=== PATIENT | female | born 1945 | race Caucasian/White ===

== ENCOUNTER 2017-03-01 14:33 | Emergency (ER) | payer MEDICARE, OTHER ==
[~2017-03-01] VITALS: Ht 167.6 cm; Wt 83.9 kg
[~2017-03-01 14:33] MED LIST: ALBU18HF2 IH; AMLO5TAB4 PO; CLOP75TA2 PO; LOSA1TAB39 PO; MELO-270 PO
--- NOTE | 2017-03-01 14:40 | NUR ---
CEHV082 FROM HOME FOR CONSTIPATION. PATIENT ON OPIODS, SP BACK SX 4 DAYS AGO. ABDOMEN NON TENDERED AND NON DISTENDED. SKIN IS WARM TO TOUCH AND NON DIAPHORETTIC. AFEBRILE. VSS
[2017-03-01 14:55] LABS: BASOPHILS % (AUTO) 0.2 % (0.0-2.0); EOSINOPHILS % (AUTO) 0.2 % (0.0-6.0); HEMATOCRIT 26 % (33-45); HEMOGLOBIN 8.9 g/dL (11.5-14.8); LYMPHOCYTES # (AUTO) 1.1 /CMM (0.8-4.8); LYMPHOCYTES % (AUTO) 13.6 % (20.0-44.0); MEAN CORPUSCULAR HEMOGLOBIN 33 PG (26.0-33.0); MEAN CORPUSCULAR HGB CONC 35 g/dl (31.0-36.0); MEAN CORPUSCULAR VOLUME 95 fL (82-100); MONOCYTES # (AUTO) 0.5 /CMM (0.1-1.30); MONOCYTES % (AUTO) 5.8 % (2.0-12.0); NEUTROPHILS # (AUTO) 6.4 /CMM (1.8-8.9); NEUTROPHILS % (AUTO) 80.2 % (43.0-81.0); PLATELET COUNT (AUTO) 260 /CMM (150-450); RDW COEFFICIENT OF VARIATION 12.1 (11.5-15.0)
[2017-03-01] MEDS ORDERED: IV NS 0.9% 1,000 ML ONE (15:00)
[2017-03-01] MEDS ORDERED: ONDANSETRON HCL/PF 4 MG/2 ML VIAL ONE (15:00)
[2017-03-01] MEDS ORDERED: IV NS 0.9% 1,000 ML BAG IV ONE (15:00)
[2017-03-01] MEDS ORDERED: IV SET PRIMARY PUMP SET 1 EA INFUS.SET MC ONE (15:00)
[2017-03-01] MEDS ORDERED: ONDANSETRON HCL/PF 4 MG/2 ML VIAL IVP ONE (15:00)
[2017-03-01 15:05] LABS: CALCIUM, SERUM 8.5 mg/dL (8.5-10.1); CARBON DIOXIDE 29 mmol/L (21-32); CHLORIDE 101 mmol/L (98-107); CREATININE 0.7 mg/dL (0.6-1.3); GLUCOSE 102 mg/dL (74-106); POTASSIUM 3.6 mmol/L (3.5-5.1); SODIUM SERUM 135 mmol/L (136-145); UREA NITROGEN, BLOOD 7 mg/dL (7-18)
[2017-03-01 15:13] LABS: BILIRUBIN,URINE Negative (NEGATIVE); BLOOD, URINE Negative Ery/uL (NEGATIVE); COLOR,URINE Light yellow (YELLOW); KETONES,URINE 15 (NEGATIVE); LEUKOCYTE ESTERASE ,URINE Negative (NEGATIVE); NITRITE, URINE Negative (NEGATIVE); PH,URINE 6.5 (5.0-8.0); PROTEIN,URINE Negative (NEGATIVE); UGLUCOSE Negative (NEGATIVE); UROBILINOGEN,URINE 0.2 EU/dL (0.2)
[2017-03-01 15:14] LABS: APPEARANCE,URINE Hazy (CLEAR)
[2017-03-01 15:18] LABS: BACTERIA,URINE None seen /HPF (None Seen); RBC,URINE 0-2 /HPF (0-2); SQUAMOUS EPITHELIAL CELL,UR Few /HPF (None Seen); WBC,URINE 0-3 /HPF (0-3)
[2017-03-01] MEDS ORDERED: MAGNESIUM CITRATE 296 ML BOTTLE PO ONE (15:30)
[2017-03-01] MEDS ORDERED: NA PHOS,M-B/NA PHOS,DI-BA 1 EA ENEMA RC ONE ×2 (15:30→15:44)
[2017-03-01] MEDS ORDERED: MAGNESIUM CITRATE 296 ML BOTTLE ONE (15:43)
--- NOTE | 2017-03-01 16:53 | NUR ---
CHECO (DAUGHTER) [phone] CELL. CALL WHEN READY TO GO HOME
[2017-03-01 17:21] VITALS: BP 124/60
== END 2017-03-01 15:07 | disposition home or self-care (01) ==
LOC: ER 14:37
DX: T40.605A Adverse effect of unspecified narcotics, initial encounter (principal); K59.00 Constipation, unspecified; I10 Essential (primary) hypertension
CPT/HCPCS: 36415; 80048; 81001; 85025; 96361; 96374; 99284; A4606; J2405; J7030; 81000-TC; Z7610

== ENCOUNTER 2017-07-18 21:05 | Emergency (ER) | payer MEDICARE ==
[~2017-07-18] VITALS: Ht 167.6 cm; Wt 76.2 kg
--- NOTE | 2017-07-18 21:15 | NUR ---
TO BED 1 A 71 YO FEMALE PT BIB FAMILY, PT C/O FEELING DIZZY, NAUSOUS, AND HIGH BP X 1 DAY. PATIENT IS AAOX4, NAD NOTED. VSS. GOWNED. PLACED ON CARDIAC AND VS MONITORING. COMFORT MEASURES RENDERED. AWAITING FOR ER MD CAMARGO.
--- NOTE | 2017-07-18 21:20 | NUR ---
STARTED A SALINE LOCK ON THE RAC G20, BLOOD DRAWN AND SENT TO LAB.
[2017-07-18 21:31] LABS: BASOPHILS # (AUTO) 0.1 /CMM (0.0-0.2); BASOPHILS % (AUTO) 0.9 % (0.0-2.0); EOSINOPHILS % (AUTO) 0.5 % (0.0-6.0); HEMATOCRIT 39 % (33-45); HEMOGLOBIN 13.3 g/dL (11.5-14.8); LYMPHOCYTES # (AUTO) 2.3 /CMM (0.8-4.8); LYMPHOCYTES % (AUTO) 36.6 % (20.0-44.0); MEAN CORPUSCULAR HEMOGLOBIN 32 PG (26.0-33.0); MEAN CORPUSCULAR HGB CONC 34 g/dl (31.0-36.0); MEAN CORPUSCULAR VOLUME 93 fL (82-100); MONOCYTES # (AUTO) 0.6 /CMM (0.1-1.30); MONOCYTES % (AUTO) 9.2 % (2.0-12.0); NEUTROPHILS # (AUTO) 3.2 /CMM (1.8-8.9); NEUTROPHILS % (AUTO) 52.8 % (43.0-81.0); PLATELET COUNT (AUTO) 318 /CMM (150-450); RDW COEFFICIENT OF VARIATION 13.1 (11.5-15.0); RED BLOOD CELL COUNT(AUTO) 4.24 MIL/uL (4.0-5.2); WHITE BLOOD COUNT (AUTO) 6.2 K/uL (4.3-11.0)
[2017-07-18 21:42] LABS: CALCIUM, SERUM 9.2 mg/dL (8.5-10.1); CARBON DIOXIDE 27 mmol/L (21-32); CHLORIDE 93 mmol/L (98-107); CREATININE 0.8 mg/dL (0.6-1.3); GLUCOSE 91 mg/dL (74-106); POTASSIUM 3.3 mmol/L (3.5-5.1); SODIUM SERUM 129 mmol/L (136-145); UREA NITROGEN, BLOOD 11 mg/dL (7-18)
--- NOTE | 2017-07-18 21:45 | NUR ---
XR AT BEDSIDE.
[2017-07-18 21:46] LABS: PROTHROMBIN TIME 10.4 SECS (9.5-12.7)
[2017-07-18 21:48] LABS: ALANINE AMINOTRANSFERASE 32 U/L (12-78); ALBUMIN 3.8 g/dL (3.4-5.0); ALKALINE PHOSPHATASE 52 U/L (46-116); ASPARTATE AMINOTRANSFERASE 27 U/L (15-37); BILIRUBIN,DIRECT 0.1 mg/dL (0.0-0.2); BILIRUBIN,TOTAL 0.6 mg/dL (0.2-1.0); TOTAL PROTEIN, SERUM 7.3 g/dL (6.4-8.2)
--- NOTE | 2017-07-18 21:49 | NUR ---
DR TAVERAS AT BEDSIDE.
[2017-07-18 21:50] LABS: TROPONIN I < 0.017 ng/mL (0.00-0.056)
--- NOTE | 2017-07-18 22:26 | NUR ---
PATIENT TAKEN TO CT.
--- NOTE | 2017-07-18 22:34 | NUR ---
PATIENT BACK FROM RADIOLOGY.
--- NOTE | 2017-07-18 22:48 | NUR ---
DR CORTEZ AT BEDSIDE.
[2017-07-18] MEDS ORDERED: ONDANSETRON HCL/PF 4 MG/2 ML VIAL ONE (22:56)
[2017-07-18] MEDS ORDERED: MECLIZINE HCL 12.5 MG TABLET ONE (22:56)
[2017-07-18] MEDS ORDERED: ONDANSETRON HCL/PF 4 MG/2 ML VIAL IV ONE (23:00)
[2017-07-18] MEDS ORDERED: MECLIZINE HCL 12.5 MG TABLET PO ONE (23:00)
--- NOTE | 2017-07-18 23:00 | NUR ---
MEDICATED PATIENT ORDERED BY DR CORTEZ.
--- NOTE | 2017-07-18 23:46 | NUR ---
IV removed. Catheter intact and site benign. Pressure and 4x4 applied to site. No bleeding noted. Patient discharged to home in stable condition. Written and verbal after care instructions given. Patient verbalizes understanding of instruction. Patient is ambulatory with steady gait, accompanied by family. Instructed patient not to drive. No further complaints.
[2017-07-18 23:47] VITALS: BP 135/65
== END 2017-07-18 23:48 | disposition home or self-care (01) ==
LOC: ER 21:07
DX: F41.9 Anxiety disorder, unspecified (principal); R42 Dizziness and giddiness; I10 Essential (primary) hypertension; R79.1 Abnormal coagulation profile; I44.7 Left bundle-branch block, unspecified; Z96.659 Presence of unspecified artificial knee joint; Z98.890 Other specified postprocedural states
CPT/HCPCS: 36415; 70450; 71010; 80048; 80076; 84484; 85025; 85730; 93005; 96374; 99285; A4606; J2405; J8597; Z7610

== ENCOUNTER 2019-08-19 15:21 | Emergency (ER) | payer MEDICARE ==
[~2019-08-19] VITALS: Ht 167.6 cm; Wt 77.1 kg
[~2019-08-19 15:21] MED LIST changes: +CLOP75TA15 PO; -CLOP75TA2 PO; +MELO-105 PO; -MELO-270 PO
--- NOTE | 2019-08-19 15:28 | NUR ---
BIB SELF C/O DIZZINESS FOR 1 WEEK, GLF 1 WEEK AGO DENIES HEAD INJURY, PT AWAKE, ALERT, -SOB, NAD NOTED, VSS, PENDING MD CAMARGO
[2019-08-19 16:49] LABS: BASOPHILS % (AUTO) 0.7 % (0.0-2.0); EOSINOPHILS % (AUTO) 0.9 % (0.0-6.0); HEMATOCRIT 39 % (33-45); HEMOGLOBIN 13.1 g/dL (11.5-14.8); LYMPHOCYTES # (AUTO) 1.8 /CMM (0.8-4.8); LYMPHOCYTES % (AUTO) 33.3 % (20.0-44.0); MEAN CORPUSCULAR HGB CONC 34 g/dl (31.0-36.0); MEAN CORPUSCULAR VOLUME 99 fL (82-100); MONOCYTES # (AUTO) 0.5 /CMM (0.1-1.30); MONOCYTES % (AUTO) 8.9 % (2.0-12.0); NEUTROPHILS # (AUTO) 3.1 /CMM (1.8-8.9); NEUTROPHILS % (AUTO) 56.2 % (43.0-81.0); PLATELET COUNT (AUTO) 288 /CMM (150-450); RED BLOOD CELL COUNT(AUTO) 3.94 MIL/uL (4.0-5.2); THYROID STIMULATING HORMONE 1.365 uIU/mL (0.358-3.74); WHITE BLOOD COUNT (AUTO) 5.4 K/uL (4.3-11.0)
[2019-08-19 18:00] VITALS: BP 159/90
[2019-08-19 18:07] LABS: CALCIUM, SERUM 9.3 mg/dL (8.5-10.1); CARBON DIOXIDE 27 mmol/L (21-32); CHLORIDE 103 mmol/L (98-107); CREATININE 0.9 mg/dL (0.6-1.3); GLUCOSE 89 mg/dL (74-106); MAGNESIUM 2.1 mg/dL (1.8-2.4); POTASSIUM 4.4 mmol/L (3.5-5.1); SODIUM SERUM 141 mmol/L (136-145); UREA NITROGEN, BLOOD 18 mg/dL (7-18)
--- NOTE | 2019-08-19 18:14 | NUR ---
Patient discharged to home in stable condition. Written and verbal after care instructions given. Patient verbalizes understanding of instruction. IV removed. Catheter intact and site benign. Pressure and 4x4 applied to site. No bleeding noted.
== END 2019-08-19 18:16 | disposition home or self-care (01) ==
LOC: ER 15:22
DX: R42 Dizziness and giddiness (principal); I10 Essential (primary) hypertension; J45.909 Unspecified asthma, uncomplicated; Z96.659 Presence of unspecified artificial knee joint; Z98.890 Other specified postprocedural states; Z60.2 Problems related to living alone; Z79.899 Other long term (current) drug therapy
CPT/HCPCS: 36415; 70450-TC; 80048-TC; 83735-TC; 84439-TC; 84443-TC; 85025-TC

== ENCOUNTER 2020-01-03 11:32 | Inpatient (IN) | payer MEDICARE ==
[~2020-01-03] VITALS: Ht 167.6 cm; Wt 83.9 kg
--- NOTE | 2020-01-03 11:35 | NUR ---
PT BIBSELF C/O DIZZNESS STARTED 10AM THIS AM, PT IS AAOX4, NOT IN RESPIRATORY DISTRESS, HOOKED TO REGISTERED NURSE STEP DOWN, KEPT RESTED AND COMFORTABLE, WILL CONTINUE TO MONITOR.
--- NOTE | 2020-01-03 12:10 | NUR ---
SEEN AND EXAMINED BY .
--- NOTE | 2020-01-03 12:20 | NUR ---
URINE SPECIMEN COLLECTED AND SENT TO LAB.
[2020-01-03] MEDS ORDERED: ONDANSETRON HCL/PF 4 MG/2 ML VIAL ONE (12:22)
[2020-01-03] MEDS ORDERED: MECLIZINE HCL 25 MG TABLET ONE (12:22)
[2020-01-03] MEDS ORDERED: IV NS 0.9% 500 ML BAG IV ONE (12:30)
[2020-01-03] MEDS ORDERED: ONDANSETRON HCL/PF 4 MG/2 ML VIAL IVP ONE (12:30)
[2020-01-03] MEDS ORDERED: MECLIZINE HCL 12.5 MG TABLET PO ONE (12:30)
--- NOTE | 2020-01-03 12:35 | NUR ---
IV LINE ESTABLISHED, BLOODRAWN AND SENT TO LAB.
[2020-01-03 12:37] LABS: BILIRUBIN,URINE Negative (NEGATIVE); BLOOD, URINE Negative Ery/uL (NEGATIVE); COLOR,URINE Yellow (YELLOW); KETONES,URINE Negative (NEGATIVE); LEUKOCYTE ESTERASE ,URINE Trace (NEGATIVE); NITRITE, URINE Negative (NEGATIVE); PROTEIN,URINE Negative (NEGATIVE); UGLUCOSE Negative (NEGATIVE); UROBILINOGEN,URINE 0.2 EU/dL (0.2)
[2020-01-03 12:40] LABS: APPEARANCE,URINE SLIGHTLY HAZY (CLEAR)
[2020-01-03 12:41] LABS: BACTERIA,URINE None seen /HPF (None Seen); RBC,URINE 0-2 /HPF (0-2); SQUAMOUS EPITHELIAL CELL,UR Few /HPF (None Seen)
[2020-01-03 12:44] LABS: BASOPHILS # (AUTO) 0.1 /CMM (0.0-0.2); BASOPHILS % (AUTO) 1.3 % (0.0-2.0); HEMATOCRIT 41 % (33-45); HEMOGLOBIN 13.8 g/dL (11.5-14.8); LYMPHOCYTES # (AUTO) 1.4 /CMM (0.8-4.8); LYMPHOCYTES % (AUTO) 29.8 % (20.0-44.0); MEAN CORPUSCULAR HGB CONC 33 g/dl (31.0-36.0); MEAN CORPUSCULAR VOLUME 99 fL (82-100); MONOCYTES # (AUTO) 0.4 /CMM (0.1-1.30); MONOCYTES % (AUTO) 8.4 % (2.0-12.0); NEUTROPHILS # (AUTO) 2.8 /CMM (1.8-8.9); NEUTROPHILS % (AUTO) 59.5 % (43.0-81.0); PLATELET COUNT (AUTO) 300 /CMM (150-450); RED BLOOD CELL COUNT(AUTO) 4.18 MIL/uL (4.0-5.2); WHITE BLOOD COUNT (AUTO) 4.8 K/uL (4.3-11.0)
[2020-01-03 12:52] LABS: CALCIUM, SERUM 9.2 mg/dL (8.5-10.1); CARBON DIOXIDE 33 mmol/L (21-32); CHLORIDE 101 mmol/L (98-107); CREATININE 0.9 mg/dL (0.6-1.3); GLUCOSE 94 mg/dL (74-106); POTASSIUM 4.8 mmol/L (3.5-5.1); SODIUM SERUM 136 mmol/L (136-145); UREA NITROGEN, BLOOD 15 mg/dL (7-18)
[2020-01-03 12:57] LABS: ALANINE AMINOTRANSFERASE 38 U/L (12-78); ALBUMIN 3.9 g/dL (3.4-5.0); ALKALINE PHOSPHATASE 58 U/L (46-116); ASPARTATE AMINOTRANSFERASE 25 U/L (15-37); BILIRUBIN,DIRECT 0.1 mg/dL (0.0-0.2); BILIRUBIN,TOTAL 0.4 mg/dL (0.2-1.0); TOTAL PROTEIN, SERUM 7.6 g/dL (6.4-8.2)
[2020-01-03] MEDS ORDERED: IV NS 0.9% 500 ML IV ONE (13:10)
[2020-01-03] MEDS ORDERED: CT SWABBABLE VALVE TRANS SET 1 EA INFUS.SET MC ONE (13:10)
[2020-01-03] MEDS ORDERED: IOHEXOL-350 100 ML VIAL IV ONE (13:10)
[2020-01-03] MEDS ORDERED: diphenhydrAMINE HCL 50 MG/ML VIAL ONE (13:17)
--- NOTE | 2020-01-03 13:20 | NUR ---
PT IS WHEELED TO CT SCAN VIA [facility].
[2020-01-03] MEDS ORDERED: diphenhydrAMINE HCL 50 MG/ML VIAL IV ONE (13:30)
--- NOTE | 2020-01-03 13:35 | NUR ---
GAVE MOVESHEET TO ADMITTING
--- NOTE | 2020-01-03 14:04 | NUR ---
AWAITING CALL FROM [facility]
--- NOTE | 2020-01-03 14:23 | NUR ---
RECEIVED AUTH TO ADMIT PER ADMITTING
--- NOTE | 2020-01-03 14:30 | NUR ---
CALLED [facility], PAGED DANII HOWARD FOR ADMISSION
--- NOTE | 2020-01-03 15:04 | NUR ---
[facility] IS [facility].
--- NOTE | 2020-01-03 15:35 | NUR ---
[id number] tele, dx tia dizziness, [facility]
--- NOTE | 2020-01-03 16:25 | NUR ---
report given to Tim HERBERT for ilia.
[2020-01-03 16:45] VITALS: BP 160/72
--- NOTE | 2020-01-03 16:45 | NUR ---
tele diesel instructor: admission admitted this 74 year old female pt from [facility] with dx: tia. awake, a/ox4, able to ambulate with hand held assist. oriented to room and surroundings. dr. quezada at bedside. all orders carried out and acknowledged. pt for p.t. and o.t. eval. tele sr with bbb. afebrile, vss. no apparent distress noted. will continue to monitor.
--- NOTE | 2020-01-03 17:43 | NUR ---
tele sewer line repairer: notes mri checklist completed and signed by pt. dinner served. hob elevated. instructed to call for assistance. will continue to monitor.
[2020-01-03] MEDS: APIXABAN 5 MG TABLET PO SCH (17:53)
[2020-01-03 18:00] VITALS: BP 157/74
[2020-01-03] MEDS: IV NS 0.9% 1,000 ML IV PRN (18:21)
[2020-01-03] MEDS ORDERED: ACETAMINOPHEN 325 MG TABLET PO PRN (18:30)
[2020-01-03] MEDS ORDERED: ONDANSETRON HCL/PF 4 MG/2 ML VIAL IVP PRN (18:30)
--- NOTE | 2020-01-03 18:30 | NUR ---
tele contact manager: notes resting comfortable in bed. iv fluids infusing well. needs attended. instructed to call for assistance. will continue to monitor.
--- NOTE | 2020-01-03 19:00 | NUR ---
tele slot operations director: notes report given to sophia (naveen) for continuity of care.
[2020-01-03 20:00] VITALS: BP 144/80
--- NOTE | 2020-01-03 20:00 | NUR ---
RN NOTES PATIENT ALERT AND ORIENTED X4, ROOM AIR, NO COMPLAIN OF PAIN, FACE SYMMETRICAL, NO DIFFICULTY SWALLOWING, ADMITTED FOR TIA. NEURO CHECK Q4HRS, NEGATIVE ASSESSMENT, ABLE TO AMBULATE WITHOUT DIFFICULTY, CONTINUE MONITOR, CALL LIGHT WITHIN REACH.
[2020-01-03] MEDS ORDERED: ATORVASTATIN 40 MG TABLET PO SCH (22:00)
[2020-01-04] VITALS: BP 125/49
[2020-01-04] MEDS: IV NS 0.9% 1,000 ML IV PRN (03:48)
[2020-01-04 04:00] VITALS: BP 135/62
--- NOTE | 2020-01-04 06:25 | NUR ---
RN NOTES ALERT AND ORIENTED X4, ROOM AIR, NO COMPLAIN OF PAIN, NEURO CHECK Q4HRS WITH NEGATIVE ASSESSMENT, ABLE TO AMBULATE INDEPENDENTLY, PERFORMS SELF CARE, MRI OF BRAIN WITH CONTRAST, CHECKLIST DONE.
[2020-01-04] MEDS ORDERED: PANTOPRAZOLE 40 MG TABLET.DR PO SCH (07:30)
[2020-01-04 07:42] LABS: CHOLESTEROL 189 mg/dL (<200); HDL CHOLESTEROL 92 mg/dL (40-60); LDL 94 mg/dL (0-99); TRIGLYCERIDES 48 mg/dL (30-150)
--- NOTE | 2020-01-04 07:44 | NUR ---
MS/RN Opening note Patient received from manufacturing shift supervisor. A/O X4, vital signs stable, denies any pain or discomfort at this time. IV fluids infusing at 100ml/hr via left fore arm 18g. For MRI today, consent form signed, check list completed. Safety measures in place, call light within reach, will continue to monitor and ensure safety.
[2020-01-04 08:00] VITALS: BP 159/70
[2020-01-04 08:14] VITALS: BP 159/70
[2020-01-04] MEDS: APIXABAN 5 MG TABLET PO SCH (08:17)
[2020-01-04] MEDS ORDERED: LOSARTAN POTASSIUM 50 MG TABLET PO SCH (09:00)
[2020-01-04] MEDS ORDERED: HYDROCHLOROTHIAZIDE 25 MG TABLET PO SCH (09:00)
[2020-01-04] MEDS ORDERED: AMLODIPINE BESYLATE 5 MG TABLET PO SCH (09:00)
[2020-01-04] MEDS ORDERED: Medication Not On Formulary EA (Losartan/Hydrochlorothiazide (Losartan-Hctz 100-25 Mg Ta PO SCH (09:00)
[2020-01-04] MEDS ORDERED: CLOPIDOGREL BISULFATE 75 MG TABLET PO SCH (09:00)
--- NOTE | 2020-01-04 09:00 | NUR ---
MS/RN Medications Morning medications administered as ordered.
--- NOTE | 2020-01-04 11:00 | NUR ---
MS/RN S/B Physical therapist Seen by PT - no needs at this time, independent with mobility.
--- NOTE | 2020-01-04 13:13 | NUR ---
MS/RN MRI Patient back in room following MRI brain, resulted as negative.
--- NOTE | 2020-01-04 14:00 | NUR ---
MS/RN S/B Dr Medina Seen by Dr Medina - patient to be discharged to home today with prescription for eliquis and lipitor. Instructed to follow up with MD in office. Made aware of signs and symptoms to be on look out for and when to return to the nearest emergency room. Patient stated understanding, provided with education printout on TIA's from exit care for further reference. Heplock and tele monitor removed, exit care signed. Patient provided with copies of exit care, medical record and also given prescription to be filled at pharmacy. All questions and concerns answered/addressed. Personal belongings returned to patient and signed for on belongings list. Waiting for transport.
[2020-01-04] MEDS ORDERED: ATOR40TA PO (14:05)
[2020-01-04] MEDS ORDERED: CLOP75TA15 PO (14:05)
[2020-01-04] MEDS ORDERED: APIX5TAB PO (14:05)
--- NOTE | 2020-01-04 15:30 | NUR ---
Social service consult requested by MD for TIA. Per MD notes and chart review, pt is a 74-year-old female with history of chronic atrial fibrillation and hypertension who states that she had 3 TIAs yesterday morning. Pt also has a metallic taste in her mouth. Patient was scheduled to have an outpatient MRI done through the office however because of recurrence of the symptoms presented to the emergency department. Work-up in the emergency department had revealed patient to have findings suggestive of some carotid stenosis of significant degree. Patient does have history of atrial fibrillation and takes Xarelto. Patient also has hypertension. CAVITY PUMP OPERATOR consulted with NAN Francis. CAVITY PUMP OPERATOR met the pt bedside. Pt is alert and oriented x 4. Pt's mood congruent. Pt lives alone but rents out a room to [employer] Pt has three adult children. Two daughter and one son. Her daughter Charisma lives close by and visits her daily. Charisma is a table hand and provides meals for the pt. Pt is ambulatory. Pt has a shower chair at home. Pt is independent wit her ADLS and IADLS. Pt surrogate decision maker are her three children. Pt denies SI/HI at this time. Pt has no history of psychiatric diagnosis or hospitalizations. Pt to be discharged back home today. Pt had an MRI and results were negative. Pt did not have a stroke. CAVITY PUMP OPERATOR provided active listening, supportive counseling and validation of feelings. [employer] is available as needed. PhQ-9 was completed and pt scored below a 4, therefore not requiring a psychiatric consult.
--- NOTE | 2020-01-04 16:59 | NUR ---
MS/principal technologist Patient discharged to home in stable condition. Escorted to main lobby via wheelchair with PAYROLL MANAGER. All personal belongings with patient upon discharge, name bands removed prior to discharge.
== END 2020-01-04 16:40 | disposition home or self-care (01) | DRG 68 ==
LOC: ER 11:32 → TELE 15:42
PROVIDERS: ADMIT Legal Medicine; ATTEND Legal Medicine
DX: I65.23 Occlusion and stenosis of bilateral carotid arteries (principal); I48.20 Chronic atrial fibrillation, unspecified; I10 Essential (primary) hypertension; I25.10 Atherosclerotic heart disease of native coronary artery without angina pectoris; E78.5 Hyperlipidemia, unspecified; J45.909 Unspecified asthma, uncomplicated; Z86.73 Personal history of transient ischemic attack (TIA), and cerebral infarction without residual deficits; R40.2412 Glasgow coma scale score 13-15, at arrival to emergency department; R29.700 NIHSS score 0
CPT/HCPCS: 36415; 70496-TC; 70498-TC; 70551-TC; 71045-TC; 80048-TC; 80061-TC; 80076-TC; 81000-TC; 84484-TC; 85025-TC; 85730-TC; 87081-TC; 93307-TC; 97116-TC; 97530-TC; 97535-TC; G0378; J1200; J2405; J7030; J7040; J8597; Q9967

== ENCOUNTER 2020-02-29 12:32 | Emergency (ER) | payer MEDICARE ==
[~2020-02-29] VITALS: Ht 167.6 cm; Wt 83.0 kg
[~2020-02-29 12:32] MED LIST changes: +APIX5TAB PO; +ATOR40TA PO; -MELO-105 PO
--- NOTE | 2020-02-29 13:00 | NUR ---
patient came in to the er c/o possible seizure, advised by PMD to go to er. on room air, breathing evenly and unlabored. connected to the monitor and pulse ox, kept comfortable, will continue to monitor accordingly.
[2020-02-29] MEDS ORDERED: VALPROATE 1,000 MG in IV D5W 100 ML IV STA (13:19)
[2020-02-29] MEDS ORDERED: LORAZEPAM INJ 2 MG/ML VIAL ONE (13:28)
[2020-02-29] MEDS ORDERED: LORAZEPAM INJ 2 MG/ML VIAL IV ONE (13:30)
[2020-02-29 14:43] VITALS: BP 145/81
--- NOTE | 2020-02-29 14:44 | NUR ---
Patient discharged to home in stable condition. Written and verbal after care instructions given. Patient verbalizes understanding of instruction.IV removed. Catheter intact and site benign. Pressure and 4x4 applied to site. No bleeding noted.
== END 2020-02-29 14:43 | disposition home or self-care (01) ==
LOC: ER 12:32
DX: G40.909 Epilepsy, unspecified, not intractable, without status epilepticus (principal); E78.5 Hyperlipidemia, unspecified; I10 Essential (primary) hypertension; I48.91 Unspecified atrial fibrillation; J45.909 Unspecified asthma, uncomplicated; Z96.659 Presence of unspecified artificial knee joint; Z98.890 Other specified postprocedural states; Z60.2 Problems related to living alone; Z79.899 Other long term (current) drug therapy
CPT/HCPCS: 96365; 96375; 99284; J2060; J3490; J7060

== ENCOUNTER 2020-05-28 15:58 | Emergency (ER) | payer MEDICARE ==
[~2020-05-28] VITALS: Ht 167.6 cm; Wt 80.3 kg
--- NOTE | 2020-05-28 16:05 | NUR ---
ER BED 3 PT CAME IN STATES THAT SHE FELL. CHIEF COMPLAINT OF LOWER BACK PAIN 04/02 AND THAT SHE HIT HER HEAD WHEN SHE FELL. VS CHECKED. AWAITING TO BE SEEN BY .
[2020-05-28 17:13] LABS: BASOPHILS % (AUTO) 0.8 % (0.0-2.0); EOSINOPHILS % (AUTO) 0.5 % (0.0-6.0); HEMATOCRIT 38 % (33-45); HEMOGLOBIN 12.7 g/dL (11.5-14.8); LYMPHOCYTES # (AUTO) 1.4 /CMM (0.8-4.8); LYMPHOCYTES % (AUTO) 24.6 % (20.0-44.0); MEAN CORPUSCULAR HGB CONC 34 g/dl (31.0-36.0); MEAN CORPUSCULAR VOLUME 102 fL (82-100); MONOCYTES # (AUTO) 0.4 /CMM (0.1-1.30); NEUTROPHILS # (AUTO) 3.8 /CMM (1.8-8.9); NEUTROPHILS % (AUTO) 67.1 % (43.0-81.0); PLATELET COUNT (AUTO) 229 /CMM (150-450); RED BLOOD CELL COUNT(AUTO) 3.71 MIL/uL (4.0-5.2); WHITE BLOOD COUNT (AUTO) 5.6 K/uL (4.3-11.0)
[2020-05-28 17:23] LABS: CALCIUM, SERUM 9.1 mg/dL (8.5-10.1); CREATININE 1.2 mg/dL (0.6-1.3); POTASSIUM 4.6 mmol/L (3.5-5.1)
--- NOTE | 2020-05-28 17:46 | NUR ---
D/C HOME Patient discharged to home in stable condition. Written and verbal after care instructions given. Patient verbalizes understanding of instruction.
[2020-05-28 17:48] VITALS: BP 148/82
== END 2020-05-28 17:48 | disposition home or self-care (01) ==
LOC: ER 16:06
DX: S09.8XXA Other specified injuries of head, initial encounter (principal); M17.10 Unilateral primary osteoarthritis, unspecified knee; M54.5 Low back pain; I10 Essential (primary) hypertension; I48.91 Unspecified atrial fibrillation; J45.909 Unspecified asthma, uncomplicated; Z98.890 Other specified postprocedural states; Z60.2 Problems related to living alone; Z79.899 Other long term (current) drug therapy; W18.39XA Other fall on same level, initial encounter; Y93.89 Activity, other specified; Y92.89 Other specified places as the place of occurrence of the external cause; Y99.8 Other external cause status
CPT/HCPCS: 36415; 70450-TC; 72131-TC; 80048-TC; 85025-TC

== ENCOUNTER 2020-06-10 14:47 | Emergency (ER) | payer MEDICARE ==
[~2020-06-10] VITALS: Ht 167.6 cm; Wt 78.5 kg
[2020-06-10] MEDS ORDERED: IV NS 0.9% 500 ML BAG IV ONE (16:00)
--- NOTE | 2020-06-10 16:07 | NUR ---
BIBS FROM HOME TO ER BED 5. AAOX4. NOT IN RESP DISTRESS, BREATHING EVEN AND UNLABORED. AMBULATORY. CAME IN FOR FEELING SICK FOR THE PAST 3 DAYS. PT REPORTS THAT SHE HAD CHILLS, FEVER. NAUSE AND DIARRHEA. PT ALSO REPORTS THAT SHE IF FEELING FATIGUED. AWAITING MD FOR EVAL. ORDERS RECEIVED.
[2020-06-10 16:31] LABS: BASOPHILS % (AUTO) 0.2 % (0.0-2.0); HEMATOCRIT 40 % (33-45); HEMOGLOBIN 13.2 g/dL (11.5-14.8); LYMPHOCYTES # (AUTO) 0.8 /CMM (0.8-4.8); LYMPHOCYTES % (AUTO) 7.8 % (20.0-44.0); MEAN CORPUSCULAR HGB CONC 33 g/dl (31.0-36.0); MEAN CORPUSCULAR VOLUME 101 fL (82-100); MONOCYTES # (AUTO) 0.6 /CMM (0.1-1.30); MONOCYTES % (AUTO) 5.7 % (2.0-12.0); NEUTROPHILS # (AUTO) 9.2 /CMM (1.8-8.9); NEUTROPHILS % (AUTO) 86.3 % (43.0-81.0); PLATELET COUNT (AUTO) 262 /CMM (150-450); RED BLOOD CELL COUNT(AUTO) 3.94 MIL/uL (4.0-5.2); WHITE BLOOD COUNT (AUTO) 10.6 K/uL (4.3-11.0)
[2020-06-10 16:42] LABS: CARBON DIOXIDE 27 mmol/L (21-32); CHLORIDE 96 mmol/L (98-107); CREATININE 0.9 mg/dL (0.6-1.3); GLUCOSE 84 mg/dL (74-106); POTASSIUM 3.8 mmol/L (3.5-5.1); SODIUM SERUM 131 mmol/L (136-145); UREA NITROGEN, BLOOD 11 mg/dL (7-18)
[2020-06-10 16:48] LABS: ALANINE AMINOTRANSFERASE 47 U/L (12-78); ALBUMIN 3.7 g/dL (3.4-5.0); ALKALINE PHOSPHATASE 77 U/L (46-116); ASPARTATE AMINOTRANSFERASE 29 U/L (15-37); BILIRUBIN,DIRECT 0.2 mg/dL (0.0-0.2); BILIRUBIN,TOTAL 0.5 mg/dL (0.2-1.0); TOTAL PROTEIN, SERUM 7.4 g/dL (6.4-8.2)
[2020-06-10 18:12] LABS: APPEARANCE,URINE CLEAR (CLEAR); BILIRUBIN,URINE NEGATIVE (NEGATIVE); BLOOD, URINE TRACE-INTA Ery/uL (NEGATIVE); COLOR,URINE YELLOW (YELLOW); KETONES,URINE 15 (NEGATIVE); LEUKOCYTE ESTERASE ,URINE NEGATIVE (NEGATIVE); NITRITE, URINE NEGATIVE (NEGATIVE); PROTEIN,URINE NEGATIVE (NEGATIVE); UGLUCOSE NEGATIVE (NEGATIVE); UROBILINOGEN,URINE 0.2 EU/dL (0.2)
[2020-06-10 18:27] LABS: BACTERIA,URINE None seen /HPF (None Seen); SQUAMOUS EPITHELIAL CELL,UR 0-2 /HPF (None Seen); WBC,URINE 0-2 /HPF (0-3)
--- NOTE | 2020-06-10 20:06 | NUR ---
Patient discharged to home in stable condition. Written and verbal after care instructions given. Patient verbalizes understanding of instruction.IV removed. Catheter intact and site benign. Pressure and 4x4 applied to site. No bleeding noted. Pt ambulatory with a steady gait
[2020-06-10 20:14] VITALS: BP 138/67
== END 2020-06-10 20:15 | disposition home or self-care (01) ==
LOC: ER 14:51
DX: B34.9 Viral infection, unspecified (principal); Z20.828 Contact with and (suspected) exposure to other viral communicable diseases; I48.91 Unspecified atrial fibrillation; Z79.01 Long term (current) use of anticoagulants; J45.909 Unspecified asthma, uncomplicated; I10 Essential (primary) hypertension; R11.2 Nausea with vomiting, unspecified; Z79.02 Long term (current) use of antithrombotics/antiplatelets
CPT/HCPCS: 36415; 71045; 80048; 80076; 81001; 83605; 84145; 84484; 85025; 85730; 87040 ×2; 87086; 87426; 93005; 99285; C9803; J7040; 81000-TC

== ENCOUNTER 2020-09-17 11:52 | Emergency (ER) | payer MEDICARE ==
[~2020-09-17] VITALS: Ht 167.6 cm; Wt 74.8 kg
[2020-09-17 12:02] VITALS: BP 138/65
--- NOTE | 2020-09-17 12:12 | NUR ---
SEEN AND EXAMINED BY .
--- NOTE | 2020-09-17 12:40 | NUR ---
YURI SYKES AT BEDSIDE FOR SPLINTING.
--- NOTE | 2020-09-17 12:44 | NUR ---
Patient discharged to home in stable condition. Written and verbal after care instructions given. Patient verbalizes understanding of instruction.
== END 2020-09-17 12:45 | disposition home or self-care (01) ==
LOC: ER 11:55
DX: S63.682A Other sprain of left thumb, initial encounter (principal); I10 Essential (primary) hypertension; I48.91 Unspecified atrial fibrillation; J45.909 Unspecified asthma, uncomplicated; Z98.890 Other specified postprocedural states; Z60.2 Problems related to living alone; Z79.899 Other long term (current) drug therapy; W22.8XXA Striking against or struck by other objects, initial encounter; Y93.89 Activity, other specified; Y92.89 Other specified places as the place of occurrence of the external cause; Y99.8 Other external cause status
CPT/HCPCS: 73130-TC

== ENCOUNTER 2020-10-18 14:35 | Emergency (ER) | payer MEDICARE ==
[~2020-10-18] VITALS: Ht 167.6 cm; Wt 83.5 kg
--- NOTE | 2020-10-18 14:50 | NUR ---
L BACK OF THE KNEE PAIN X 3 WEEKS. DENIES TRAUMA. PATIENT A/OX4, BREATHING EVEN AND UNLABORED, NO SOB NOTED.
[2020-10-18] MEDS ORDERED: ESCI10TA PO (15:40)
[2020-10-18] MEDS ORDERED: LAMO100T17 PO (15:40)
[2020-10-18] MEDS ORDERED: AMLO-212 PO (15:40)
[2020-10-18] MEDS ORDERED: BUME0.5T5 PO (15:40)
[2020-10-18] MEDS ORDERED: METO25TA4 PO (15:40)
[2020-10-18 16:21] VITALS: BP 137/78
--- NOTE | 2020-10-18 16:21 | NUR ---
PATIENT AMBULATORY WITH CANE, NO DISTRESS NOTED, Patient discharged to home in stable condition. Written and verbal after care instructions given. Patient verbalizes understanding of instruction.
== END 2020-10-18 16:21 | disposition home or self-care (01) ==
LOC: ER 14:39
DX: M25.562 Pain in left knee (principal); I48.91 Unspecified atrial fibrillation; I10 Essential (primary) hypertension; J45.909 Unspecified asthma, uncomplicated; Z96.652 Presence of left artificial knee joint; Z98.890 Other specified postprocedural states; Z60.2 Problems related to living alone; Z79.899 Other long term (current) drug therapy
CPT/HCPCS: 73564-TC; 93971-TC

== ENCOUNTER 2021-02-12 18:47 | Emergency (ER) | payer MEDICARE ==
[~2021-02-12] VITALS: Ht 170.2 cm; Wt 68.0 kg
[~2021-02-12 18:47] MED LIST changes: +AMLO-212 PO; -AMLO5TAB4 PO; +BUME0.5T5 PO; -CLOP75TA15 PO; +ESCI10TA PO; +LAMO100T17 PO; -LOSA1TAB39 PO; +METO25TA4 PO
--- NOTE | 2021-02-12 19:29 | NUR ---
BIBS FROM HOME TO ER BED 6. AAOX4. NOT IN RESP DISTRESS. AMBULATORY W/ A CANE. SENT BY DR. CAGE FOR WORSENING RENAL FUNCTION. PT SAID THAT THE TOLD HER SHE IS DEHYDRATED. DENIES ANY PAIN. MD WAS AT THE BEDSIDE FOR EVAL. ORDERS RECEIVED, NOTED AND CARRIED OUT. IV LINE ESTABLISHED ON R HAND 20G. BLOOD DRAWN AND GIVEN TO PHLEB.
[2021-02-12] MEDS ORDERED: IV NS 0.9% 500 ML BAG IV ONE (19:30)
[2021-02-12 19:33] LABS: BASOPHILS % (AUTO) 0.9 % (0.0-2.0); EOSINOPHILS % (AUTO) 0.8 % (0.0-6.0); HEMATOCRIT 37 % (33-45); LYMPHOCYTES # (AUTO) 1.7 /CMM (0.8-4.8); LYMPHOCYTES % (AUTO) 32.5 % (20.0-44.0); MEAN CORPUSCULAR HGB CONC 33 g/dl (31.0-36.0); MEAN CORPUSCULAR VOLUME 100 fL (82-100); MONOCYTES # (AUTO) 0.5 /CMM (0.1-1.30); NEUTROPHILS % (AUTO) 55.8 % (43.0-81.0); PLATELET COUNT (AUTO) 287 /CMM (150-450); RED BLOOD CELL COUNT(AUTO) 3.68 MIL/uL (4.0-5.2); WHITE BLOOD COUNT (AUTO) 5.3 K/uL (4.3-11.0)
[2021-02-12 20:03] LABS: ALANINE AMINOTRANSFERASE 55 U/L (12-78); ALBUMIN 4.1 g/dL (3.4-5.0); ALKALINE PHOSPHATASE 71 U/L (46-116); ASPARTATE AMINOTRANSFERASE 39 U/L (15-37); BILIRUBIN,DIRECT 0.2 mg/dL (0.0-0.2); BILIRUBIN,TOTAL 0.5 mg/dL (0.2-1.0); CARBON DIOXIDE 33 mmol/L (21-32); CHLORIDE 89 mmol/L (98-107); GLUCOSE 86 mg/dL (74-106); POTASSIUM 3.4 mmol/L (3.5-5.1); SODIUM SERUM 129 mmol/L (136-145); TOTAL PROTEIN, SERUM 7.1 g/dL (6.4-8.2); UREA NITROGEN, BLOOD 24 mg/dL (7-18)
[2021-02-12 20:06] LABS: CALCIUM, SERUM 9.5 mg/dL (8.5-10.1)
--- NOTE | 2021-02-12 20:31 | NUR ---
Patient discharged to home in stable condition. Written and verbal after care instructions given. Patient verbalizes understanding of instruction.IV removed. Catheter intact and site benign. Pressure and 4x4 applied to site. No bleeding noted. Pt ambulatory with a steady gait w/ an aide of a cane.
[2021-02-12 20:35] VITALS: BP 134/58
== END 2021-02-12 20:43 | disposition home or self-care (01) ==
LOC: ER 18:47
DX: N17.9 Acute kidney failure, unspecified (principal); I44.7 Left bundle-branch block, unspecified; I10 Essential (primary) hypertension; I48.91 Unspecified atrial fibrillation; J45.909 Unspecified asthma, uncomplicated; Z98.890 Other specified postprocedural states; Z60.2 Problems related to living alone; Z79.899 Other long term (current) drug therapy
CPT/HCPCS: 36415; 71045; 80048; 80076; 84484; 85025; 85730; 93005; 99285; J7040

== ENCOUNTER 2021-03-23 17:38 | Emergency (ER) | payer MEDICARE ==
[~2021-03-23] VITALS: Ht 167.6 cm; Wt 72.6 kg
--- NOTE | 2021-03-23 17:38 | NUR ---
PT BIB SELF C/O L ARM INJURY AND BACK PAIN S/P GLF. "I LOST MY BALANCE" PT IS AAOX4, NOT IN RESPIRATORY DISTRESS, V/S STABLE, KEPT RESTED AND COMFORTABLE. WILL CONTINUE TO MONITOR.
--- NOTE | 2021-03-23 17:57 | NUR ---
AT BEDSIDE FOR EVAL.
[2021-03-23] MEDS ORDERED: DONE5TAB34 PO (18:04)
[2021-03-23] MEDS ORDERED: VALS1TAB6 PO (18:04)
[2021-03-23] MEDS ORDERED: TOPI25TA49 PO (18:04)
[2021-03-23] MEDS ORDERED: TDAP [DIPH/PERTUSSIS/TET] 0.5 ML VIAL IM ONE ×2 (18:09→18:30)
--- NOTE | 2021-03-23 18:11 | NUR ---
HOTEL RECREATIONAL FACILITIES MANAGER AT BEDSIDE FOR XRAY.
--- NOTE | 2021-03-23 20:10 | NUR ---
Patient discharged to home in stable condition. Written and verbal after care instructions given. Patient verbalizes understanding of instruction. Pt ambulatory with a steady gait
[2021-03-23 20:25] VITALS: BP 114/88
== END 2021-03-23 20:10 | disposition home or self-care (01) ==
LOC: ER 18:05
DX: S50.12XA Contusion of left forearm, initial encounter (principal); I10 Essential (primary) hypertension; I48.91 Unspecified atrial fibrillation; J45.909 Unspecified asthma, uncomplicated; Z98.890 Other specified postprocedural states; Z60.2 Problems related to living alone; Z79.899 Other long term (current) drug therapy; W18.39XA Other fall on same level, initial encounter; Y93.89 Activity, other specified; Y92.89 Other specified places as the place of occurrence of the external cause; Y99.8 Other external cause status
CPT/HCPCS: 73090-TC; 90715

== ENCOUNTER 2022-10-04 05:01 | Inpatient (IN) | payer MEDICARE ==
[~2022-10-04] VITALS: Ht 167.6 cm; Wt 72.6 kg
[~2022-10-04 05:01] MED LIST changes: -APIX5TAB PO; -ATOR40TA PO; +DONE5TAB34 PO; -METO25TA4 PO; +VALS1TAB6 PO
--- NOTE | 2022-10-04 05:23 | NUR ---
TO ER BED 10, BIBRA39 R EAR PAIN & LACERATION S/P GLF X 2. +HT, DENIES KO, ON ELIQUIS PER PT SHE GOT OUT OF BALANCE, AAOX3, BREATHING EVEN AND NON LABORED, CONNECTED TO MONITOR.
[2022-10-04] MEDS ORDERED: TDAP [DIPH/PERTUSSIS/TET] 0.5 ML VIAL IM ONE ×2 (05:43→06:00)
--- NOTE | 2022-10-04 06:16 | NUR ---
CAME BACK FROM CT DEPT
--- NOTE | 2022-10-04 07:05 | NUR ---
SALINE LOCK ESTABLISHED, BLOOD DRAWN AND SENT TO LAB
--- NOTE | 2022-10-04 07:05 | NUR ---
URINE COLLECTED AND SENT TO LAB
[2022-10-04 07:18] LABS: BASOPHILS % (AUTO) 0.5 % (0.0-2.0); EOSINOPHILS % (AUTO) 1.3 % (0.0-6.0); HEMATOCRIT 36 % (33-45); HEMOGLOBIN 11.8 g/dL (11.5-14.8); LYMPHOCYTES # (AUTO) 1.4 K/uL (0.8-4.8); LYMPHOCYTES % (AUTO) 23.4 % (20.0-44.0); MEAN CORPUSCULAR HGB CONC 33 g/dl (31.0-36.0); MEAN CORPUSCULAR VOLUME 106 fL (82-100); MONOCYTES # (AUTO) 0.7 K/uL (0.1-1.30); MONOCYTES % (AUTO) 12.3 % (2.0-12.0); NEUTROPHILS # (AUTO) 3.8 K/uL (1.8-8.9); NEUTROPHILS % (AUTO) 62.5 % (43.0-81.0); PLATELET COUNT (AUTO) 247 K/uL (150-450); RED BLOOD CELL COUNT(AUTO) 3.34 MIL/uL (4.0-5.2); WHITE BLOOD COUNT (AUTO) 6.1 K/uL (4.3-11.0)
[2022-10-04 07:54] LABS: CALCIUM, SERUM 9.2 mg/dL (8.5-10.1); CARBON DIOXIDE 28 mmol/L (21-32); CHLORIDE 99 mmol/L (98-107); CREATININE 1.3 mg/dL (0.6-1.3); GLUCOSE 80 mg/dL (74-106); POTASSIUM 4.4 mmol/L (3.5-5.1); SODIUM SERUM 134 mmol/L (136-145); UREA NITROGEN, BLOOD 19 mg/dL (7-18)
[2022-10-04 08:02] LABS: BILIRUBIN,URINE NEGATIVE (NEGATIVE); COLOR,URINE YELLOW (YELLOW); LEUKOCYTE ESTERASE ,URINE NEGATIVE (NEGATIVE); NITRITE, URINE NEGATIVE (NEGATIVE); PROTEIN,URINE NEGATIVE (NEGATIVE); UGLUCOSE NEGATIVE (NEGATIVE); UROBILINOGEN,URINE 0.2 EU/dL (0.2)
[2022-10-04] MEDS ORDERED: LIDOCAINE 1% INJ 50 ML MDV IJ ONE (08:15)
[2022-10-04] MEDS ORDERED: LIDOCAINE /MPF 1% VIAL 5 ML VIAL IJ ONE (08:30)
--- NOTE | 2022-10-04 09:00 | NUR ---
DR MICHEL AT BEDSIDE FOR EAR IRRIGATION
--- NOTE | 2022-10-04 10:13 | NUR ---
DR MICHEL SPEAKING W/ PT'S DTR PONCHO OVER THE PHONE
--- NOTE | 2022-10-04 10:35 | NUR ---
per dr tejeda, pt's dtr will pickup pt later today
[2022-10-04] MEDS ORDERED: METO25TA4 PO (13:51)
--- NOTE | 2022-10-04 14:48 | NUR ---
CALLED [facility] [phone] LEFT ABOUT POSSIBLE LEFT PHONE.
[2022-10-04] MEDS ORDERED: THIAMINE HCL 100 MG TABLET ONE (14:59)
[2022-10-04] MEDS ORDERED: FOLIC ACID 1 MG TABLET ONE (14:59)
[2022-10-04] MEDS ORDERED: THIAMINE HCL 100 MG TABLET PO ONE (15:00)
[2022-10-04] MEDS ORDERED: FOLIC ACID 1 MG TABLET PO ONE (15:00)
--- NOTE | 2022-10-04 15:07 | NUR ---
RAPID COVID SWAB DONE AND SENT TO LAB
--- NOTE | 2022-10-04 15:50 | NUR ---
[facility] CALLED MEDICAL SECRETARY PAGED.
--- NOTE | 2022-10-04 17:19 | NUR ---
BARBARA ISAAC, ABLE TO FIND PT'S PERSONAL CELLPHONE AT [facility].
--- NOTE | 2022-10-04 18:30 | NUR ---
CALLED DR. CAGE [phone] [facility] WILL ADMIT.
--- NOTE | 2022-10-04 19:40 | NUR ---
REPORT GIVEN TO ARA Smith RN FOR WILLARD
--- NOTE | 2022-10-04 19:45 | NUR ---
MS RN ADMITTING NOTES PT ARRIVED AT UNIT VIA GURNEY BY ER STAFF. A/O X4, ORIENTED TO NAME, PLACE, TIME. ABLE TO MAKE NEEDS KNOWN, RESPONDS TO QUESTIONS, COOPERATIVE. STABLE ON RA. NO SOB OR ACUTE DISTRESS NOTED. DENIES CHEST PAIN AT THIS TIME. VS: 139/52 BP, 75 HR, 18 RR, 98 F, 99% O2. WEIGHT: 160 LB. LUNG SOUNDS CLEAR. HEART SOUNDS WNL. SKIN ASSESSMENT PERFORMED, ISSUES NOTED AND DOCUMENTED IN CHART: R EAR WOUND; BRUISES ON R SHOULDER, [place], RFA, R ABDOMEN, R HIP. NO EDEMA NOTED. IV ACCESS RFA #22G, FLUSHING WELL, PATENT AND INTACT. ORIENTED TO UNIT AND HOW TO USE CALL LIGHT. BELONGINGS NOTED AND DOCUMENTED IN CHART. SAFETY MEASURES PUT IN PLACE: BED LOCKED AND IN LOWEST POSITION, SIDE RAILS UP X2, BED ALARM ON, CALL LIGHT AND TRAY TABLE WITHIN REACH. WILL CONTINUE TO MONITOR AND ASSIST.
--- NOTE | 2022-10-04 19:56 | NUR ---
PT TRANSFERRED TO [facility] VIA HOSPITAL PROTOCOL.
[2022-10-04 20:00] VITALS: BP 139/52
[2022-10-04] MEDS ORDERED: ACETAMINOPHEN 325 MG TABLET PO PRN (20:00)
[2022-10-04] MEDS ORDERED: MAGNESIUM HYDROXIDE 30 ML UDC PO PRN (20:00)
[2022-10-04] MEDS ORDERED: MAG HYDROX/AL HYDROX/SIMETH 30 ML UDC PO PRN (20:00)
[2022-10-04] MEDS ORDERED: Z GUARD REMEDY 4 OZ OINT TP PRN (20:00)
[2022-10-04] MEDS ORDERED: ONDANSETRON HCL/PF 4 MG/2 ML VIAL IVP PRN (20:00)
[2022-10-04] MEDS ORDERED: ALBUTEROL FS 2.5 MG/3 ML VIAL.NEB NEB PRN (20:30)
[2022-10-04] MEDS: IV NS 0.9% 1,000 ML IV PRN (21:48)
[2022-10-04] MEDS: ATORVASTATIN 40 MG TABLET PO SCH (21:49)
[2022-10-04] MEDS: AMLODIPINE BESYLATE 5 MG TABLET PO SCH (21:50)
--- NOTE | 2022-10-05 06:50 | NUR ---
MS RN CLOSING NOTES PT AWAKE IN BED, WATCHING TV AT THIS TIME. A/O X4, ABLE TO MAKE NEEDS KNOWN, COOPERATIVE. STABLE ON RA. NO SOB OR ACUTE DISTRESS NOTED. DENIES CHEST PAIN AT THIS TIME. IV ACCESS RFA #22G, FLUSHING WELL, PATENT AND INTACT, INFUSING NS @ 75 ML/HR. ALL CARE PROVIDED AND MEDS TOLERATED WELL. SEIZURE PRECAUTIONS IN PLACE: PADDED RAILS, SUCTION EQUIPMENT SETUP. SAFETY MEASURES PUT IN PLACE: BED LOCKED AND IN LOWEST POSITION, SIDE RAILS UP X2, BED ALARM ON, CALL LIGHT AND TRAY TABLE WITHIN REACH. WILL ENDORSE WILLARD TO DAY SHIFT NURSE.
[2022-10-05 06:54] LABS: BASOPHILS % (AUTO) 1.1 % (0.0-2.0); EOSINOPHILS % (AUTO) 2.6 % (0.0-6.0); HEMATOCRIT 34 % (33-45); HEMOGLOBIN 11.3 g/dL (11.5-14.8); LYMPHOCYTES # (AUTO) 1.1 K/uL (0.8-4.8); LYMPHOCYTES % (AUTO) 34.4 % (20.0-44.0); MEAN CORPUSCULAR HGB CONC 33 g/dl (31.0-36.0); MEAN CORPUSCULAR VOLUME 106 fL (82-100); MONOCYTES # (AUTO) 0.5 K/uL (0.1-1.30); MONOCYTES % (AUTO) 15.1 % (2.0-12.0); NEUTROPHILS # (AUTO) 1.5 K/uL (1.8-8.9); NEUTROPHILS % (AUTO) 46.8 % (43.0-81.0); PLATELET COUNT (AUTO) 223 K/uL (150-450); RED BLOOD CELL COUNT(AUTO) 3.19 MIL/uL (4.0-5.2); WHITE BLOOD COUNT (AUTO) 3.3 K/uL (4.3-11.0)
[2022-10-05 07:00] VITALS: BP 149/80
[2022-10-05 07:12] LABS: CALCIUM, SERUM 8.9 mg/dL (8.5-10.1); CREATININE 1.1 mg/dL (0.6-1.3); MAGNESIUM 2.1 mg/dL (1.8-2.4); PHOSPHORUS 3.9 mg/dL (2.5-4.9)
[2022-10-05 07:17] LABS: THYROID STIMULATING HORMONE 2.157 uIU/mL (0.358-3.74)
[2022-10-05] MEDS: ESCITALOPRAM OXALATE (10 MG) 10 MG TABLET PO SCH (10:22)
[2022-10-05] MEDS: PANTOPRAZOLE 40 MG TABLET.DR PO SCH (10:22)
[2022-10-05] MEDS: LamoTRIgine 100 MG TABLET PO SCH ×2 (10:22→19:47)
[2022-10-05] MEDS: METOPROLOL SUCCINATE 25 MG TAB.SR.24H PO SCH (10:26)
[2022-10-05] MEDS: IV NS 0.9% 1,000 ML IV PRN (15:17)
--- NOTE | 2022-10-05 19:15 | NUR ---
MS RN OPENING NOTES RECEIVED PT AWAKE IN BED. A/O X4, ABLE TO MAKE NEEDS KNOWN, COOPERATIVE. ON RA. NO SOB OR ACUTE DISTRESS NOTED. DENIES ANY PAIN AT THIS TIME. IV ACCESS RFA #22G, FLUSHING WELL, PATENT AND INTACT, INFUSING NS @ 75 ML/HR. SEIZURE PRECAUTIONS IN PLACE: PADDED RAILS, SUCTION EQUIPMENT SETUP. SAFETY MEASURES IN PLACE: BED LOCKED AND IN LOWEST POSITION, SIDE RAILS UP X2, BED ALARM ON, CALL LIGHT AND TRAY TABLE WITHIN REACH. WILL CONTINUE TO MONITOR AND ASSIST.
[2022-10-05 20:00] VITALS: BP 144/59
[2022-10-05] MEDS: ATORVASTATIN 40 MG TABLET PO SCH (22:23)
[2022-10-05] MEDS: AMLODIPINE BESYLATE 5 MG TABLET PO SCH (22:25)
[2022-10-06] MEDS: IV NS 0.9% 1,000 ML IV PRN (05:12)
[2022-10-06 07:00] VITALS: BP_SYST 138; BP_SYST 142; BP_DIAS 64; BP_DIAS 75
--- NOTE | 2022-10-06 07:15 | NUR ---
MS RN CLOSING NOTES PT AWAKE IN BED. A/O X4, ABLE TO MAKE NEEDS KNOWN, COOPERATIVE. STABLE ON RA. NO SOB OR ACUTE DISTRESS NOTED. DENIES ANY PAIN AT THIS TIME. IV ACCESS RFA #22G, FLUSHING WELL, PATENT AND INTACT, INFUSING NS @ 75 ML/HR. ALL CARE PROVIDED AND MEDS TOLERATED WELL. SEIZURE PRECAUTIONS IN PLACE: PADDED RAILS, SUCTION EQUIPMENT SETUP. SAFETY MEASURES MAINTAINED: BED LOCKED AND IN LOWEST POSITION, SIDE RAILS UP X2, BED ALARM ON, CALL LIGHT AND TRAY TABLE WITHIN REACH. WILL ENDORSE WILLARD TO DAY SHIFT NURSE.
[2022-10-06 08:05] LABS: BILIRUBIN,TOTAL 0.4 mg/dL (0.2-1.0); CALCIUM, SERUM 8.8 mg/dL (8.5-10.1); CREATININE 1.1 mg/dL (0.6-1.3); PHOSPHORUS 4.3 mg/dL (2.5-4.9); TOTAL PROTEIN, SERUM 5.9 g/dL (6.4-8.2)
[2022-10-06 08:34] LABS: BASOPHILS % (AUTO) 0.7 % (0.0-2.0); EOSINOPHILS % (AUTO) 3.2 % (0.0-6.0); HEMATOCRIT 34 % (33-45); HEMOGLOBIN 11.1 g/dL (11.5-14.8); LYMPHOCYTES # (AUTO) 0.9 K/uL (0.8-4.8); LYMPHOCYTES % (AUTO) 31.5 % (20.0-44.0); MEAN CORPUSCULAR HGB CONC 33 g/dl (31.0-36.0); MEAN CORPUSCULAR VOLUME 106 fL (82-100); MONOCYTES # (AUTO) 0.4 K/uL (0.1-1.30); MONOCYTES % (AUTO) 13.4 % (2.0-12.0); NEUTROPHILS # (AUTO) 1.5 K/uL (1.8-8.9); NEUTROPHILS % (AUTO) 51.2 % (43.0-81.0); PLATELET COUNT (AUTO) 224 K/uL (150-450); RED BLOOD CELL COUNT(AUTO) 3.18 MIL/uL (4.0-5.2)
[2022-10-06] MEDS: PANTOPRAZOLE 40 MG TABLET.DR PO SCH (09:36)
[2022-10-06] MEDS: ESCITALOPRAM OXALATE (10 MG) 10 MG TABLET PO SCH (09:36)
[2022-10-06] MEDS: LamoTRIgine 100 MG TABLET PO SCH ×2 (09:38→17:34)
[2022-10-06] MEDS: METOPROLOL SUCCINATE 25 MG TAB.SR.24H PO SCH (09:39)
--- NOTE | 2022-10-06 19:48 | NUR ---
MS RN CLOSING NOTES RECEIVED PT AWAKE IN BED. A/O X4, ABLE TO MAKE NEEDS KNOWN, COOPERATIVE. ON RA. NO SOB OR ACUTE DISTRESS NOTED. DENIES ANY PAIN AT THIS TIME. IV ACCESS RFA #22G, FLUSHING WELL, PATENT AND INTACT, INFUSING NS @ 75 ML/HR. SEIZURE PRECAUTIONS IN PLACE: PADDED RAILS, SUCTION EQUIPMENT SETUP. ALL DUE MEDS GIVEN ORDERED , SAFETY MEASURES IN PLACE: BED LOCKED AND IN LOWEST POSITION, SIDE RAILS UP X2, BED ALARM ON, CALL LIGHT AND TRAY TABLE WITHIN REACH. ENDORSED TO NEXT SHIFT .
[2022-10-06 20:00] VITALS: BP 138/54
[2022-10-06] MEDS: AMLODIPINE BESYLATE 5 MG TABLET PO SCH (22:06)
[2022-10-06] MEDS: ATORVASTATIN 40 MG TABLET PO SCH (22:06)
[2022-10-07 07:00] VITALS: BP 134/64
[2022-10-07] MEDS: PANTOPRAZOLE 40 MG TABLET.DR PO SCH (07:15)
--- NOTE | 2022-10-07 07:30 | NUR ---
RN MS NOTES PT IN BED, ASLEEP, EASY TO AROUSE, ALERT AND ORIENTED, NOT IN DISTRESS, CALL LIGHT WITHIN REACH, KEPT WARM AND COMFORTABLE IN BED.
[2022-10-07 09:39] VITALS: BP 134/64
[2022-10-07] MEDS: METOPROLOL SUCCINATE 25 MG TAB.SR.24H PO SCH (09:39)
[2022-10-07] MEDS: ESCITALOPRAM OXALATE (10 MG) 10 MG TABLET PO SCH (09:39)
[2022-10-07] MEDS: LamoTRIgine 100 MG TABLET PO SCH (09:39)
--- NOTE | 2022-10-07 13:24 | NUR ---
RN MS NOTES PT AWAKE, ALERT AND ORIENTED, SITTING IN HER BED, NO COMPLAINT OF PAIN, NOT IN DISTRESS, ASSISTED TO BATHROOM NEEDED, CALL LIGHT WITHIN REACH, SEEN BY DR. ROGEL, DISCHARGE ORDER GIVEN, DISCHARGE AND MEDICATION INSTRUCTIONS PROVIDED TO PT, VERBALIZED UNDERSTANDING, BELONGINGS ACCOUNTED FOR, PT REFUSED SKIN ASSESSMENT AND PHOTOS ON DISCHARGE, STATED THAT "THEY ARE THE SAME AND THEY ARE IMPROVING", NEW WALKER PROVIDED TO PT, SET UP FWW BASED ON PT'S HEIGHT, PER PT HER DAUGHTER WILL BE HOME EARLY FROM WORK TODAY TO MEET HER AT HER HOME, ASSISTED TO WHEELCHAIR, LEFT VIA WHEELCHAIR VAN TRANSPORT IN STABLE CONDITION.
== END 2022-10-07 18:41 | disposition home health service (06) | DRG 552 ==
LOC: ER 05:19 → TELE 18:43 → MED 22:08
PROVIDERS: ADMIT Nurse Practitioner Acute Care
DX: M50.01 Cervical disc disorder with myelopathy, high cervical region (principal); E87.1 Hypo-osmolality and hyponatremia; G62.9 Polyneuropathy, unspecified; S01.312A Laceration without foreign body of left ear, initial encounter; I48.0 Paroxysmal atrial fibrillation; W01.0XXA Fall on same level from slipping, tripping and stumbling without subsequent striking against object, initial encounter; Y92.009 Unspecified place in unspecified non-institutional (private) residence as the place of occurrence of the external cause; J45.909 Unspecified asthma, uncomplicated; R29.6 Repeated falls; I10 Essential (primary) hypertension; I25.10 Atherosclerotic heart disease of native coronary artery without angina pectoris; E78.5 Hyperlipidemia, unspecified; G40.909 Epilepsy, unspecified, not intractable, without status epilepticus; Z91.81 History of falling; Z79.01 Long term (current) use of anticoagulants; Z96.653 Presence of artificial knee joint, bilateral; F32.A Depression, unspecified; K74.60 Unspecified cirrhosis of liver; Z86.16 Personal history of COVID-19; Z98.890 Other specified postprocedural states; Z98.1 Arthrodesis status; Z79.51 Long term (current) use of inhaled steroids; Z79.899 Other long term (current) drug therapy; Z86.73 Personal history of transient ischemic attack (TIA), and cerebral infarction without residual deficits; G89.29 Other chronic pain; M50.11 Cervical disc disorder with radiculopathy, high cervical region; M50.03 Cervical disc disorder with myelopathy, cervicothoracic region; M50.13 Cervical disc disorder with radiculopathy, cervicothoracic region; G20 Parkinson's disease; R79.89 Other specified abnormal findings of blood chemistry
CPT/HCPCS: 36415; 70450-TC; 71045-TC; 72125-TC; 80048-TC; 80053-TC; 80061-TC; 82607-TC; 83735-TC; 83880; 84100-TC; 84207; 84443-TC; 84484-TC; 85025-TC; 85730-TC; 87081-TC; 90715; 97116-TC; 97530-TC; C9803; G0378; J3490; J7030

== ENCOUNTER 2022-10-13 16:33 | Inpatient (IN) | payer MEDICARE ==
[~2022-10-13] VITALS: Ht 167.6 cm; Wt 74.4 kg
[~2022-10-13 16:33] MED LIST changes: -DONE5TAB34 PO; +METO25TA4 PO
--- NOTE | 2022-10-13 19:00 | NUR ---
PT C/O LEFT WRIST PAIN,H/O GLF YESTERDAY,VELCRO SPLINT IN PLACE. TOLERATING R/A WELL WITH NO RESP DISTRESS. SAFETY MEASURES IN PLACE.
--- NOTE | 2022-10-13 19:32 | NUR ---
EQUINE PHARMACOLOGY TECHNICIAN AT PT'S BEDSIDE
--- NOTE | 2022-10-13 19:41 | NUR ---
PT TAKEN TO CT VIA GIOVANNI
[2022-10-13 19:57] LABS: ALANINE AMINOTRANSFERASE 42 U/L (12-78); ALKALINE PHOSPHATASE 116 U/L (46-116); ASPARTATE AMINOTRANSFERASE 43 U/L (15-37); BILIRUBIN,DIRECT 0.2 mg/dL (0.0-0.2); BILIRUBIN,TOTAL 0.4 mg/dL (0.2-1.0); CALCIUM, SERUM 9.4 mg/dL (8.5-10.1); CARBON DIOXIDE 29 mmol/L (21-32); CHLORIDE 101 mmol/L (98-107); CREATININE 1.2 mg/dL (0.6-1.3); GLUCOSE 76 mg/dL (74-106); POTASSIUM 4.2 mmol/L (3.5-5.1); SODIUM SERUM 135 mmol/L (136-145); TOTAL PROTEIN, SERUM 7.8 g/dL (6.4-8.2); UREA NITROGEN, BLOOD 19 mg/dL (7-18)
[2022-10-13 20:05] LABS: THYROID STIMULATING HORMONE 2.341 uIU/mL (0.358-3.74)
--- NOTE | 2022-10-13 20:06 | NUR ---
MOVE SHEET SUBMITTED.
[2022-10-13 20:07] LABS: BASOPHILS # (AUTO) 0.1 K/uL (0.0-0.2); BASOPHILS % (AUTO) 1.2 % (0.0-2.0); EOSINOPHILS % (AUTO) 0.8 % (0.0-6.0); HEMATOCRIT 37 % (33-45); HEMOGLOBIN 12.3 g/dL (11.5-14.8); LYMPHOCYTES # (AUTO) 1.7 K/uL (0.8-4.8); LYMPHOCYTES % (AUTO) 33.2 % (20.0-44.0); MEAN CORPUSCULAR HGB CONC 33 g/dl (31.0-36.0); MEAN CORPUSCULAR VOLUME 105 fL (82-100); MONOCYTES # (AUTO) 0.6 K/uL (0.1-1.30); MONOCYTES % (AUTO) 10.9 % (2.0-12.0); NEUTROPHILS # (AUTO) 2.8 K/uL (1.8-8.9); NEUTROPHILS % (AUTO) 53.9 % (43.0-81.0); PLATELET COUNT (AUTO) 327 K/uL (150-450); RED BLOOD CELL COUNT(AUTO) 3.54 MIL/uL (4.0-5.2); WHITE BLOOD COUNT (AUTO) 5.1 K/uL (4.3-11.0)
--- NOTE | 2022-10-13 20:10 | NUR ---
COVID ANTGEN SWAB COLLECTED AND SENT TO LAB
--- NOTE | 2022-10-13 20:21 | NUR ---
URINE SPECIMEN SENT TO LAB
--- NOTE | 2022-10-13 20:34 | NUR ---
RM 310-2
[2022-10-13 20:47] LABS: BILIRUBIN,URINE NEGATIVE (NEGATIVE); COLOR,URINE YELLOW (YELLOW); LEUKOCYTE ESTERASE ,URINE NEGATIVE (NEGATIVE); NITRITE, URINE NEGATIVE (NEGATIVE); PH,URINE 5.5 (5.0-8.0); PROTEIN,URINE NEGATIVE (NEGATIVE); UGLUCOSE NEGATIVE (NEGATIVE); UROBILINOGEN,URINE 0.2 EU/dL (0.2)
--- NOTE | 2022-10-13 21:36 | NUR ---
REPORT GIVEN TO NAN SWIFT FOR WILLARD
[2022-10-13 21:47] LABS: BACTERIA,URINE None seen /HPF (None Seen); RBC,URINE 0-2 /HPF (0-2); SQUAMOUS EPITHELIAL CELL,UR 0-2 /HPF (None Seen); WBC,URINE 0-2 /HPF (0-3)
--- NOTE | 2022-10-13 22:30 | NUR ---
PT BEING TRANSPORTED TO UNIT ON [facility] WITH EMT AND RN AT BEDSIDE W/ ACLS PROTOCOL. NAD NOTED DURING TRANSPORT
[2022-10-13 22:45] VITALS: BP 147/84
[2022-10-13] MEDS ORDERED: ALBUTEROL SULFATE 8 GM HFA.AER.AD IH PRN (23:00)
[2022-10-13] MEDS ORDERED: ONDANSETRON HCL/PF 4 MG/2 ML VIAL IVP PRN (23:00)
[2022-10-13] MEDS ORDERED: ACETAMINOPHEN 325 MG TABLET PO PRN (23:00)
--- NOTE | 2022-10-13 23:00 | NUR ---
MS STRINGING MACHINE OPERATOR NOTE PATIENT ARRIVED ON UNIT AT 2230, PATIENT ALERT/ORIENTED X 4, PATIENT ABLE TO MAKE NEEDS KNOWN. PATIENT STABLE ON RA, NO S/S OF DISTRESS OR SOB NOTED, BREATHING EVEN AND UNLABORED. IV ACCESS ON RIGHT WRIST #22G INTACT AND FLUSHING WELL. PATIENT REPORTS FREQUENT FALLS, HAD A FALL LAST NIGHT, HURT LEFT HAND, LEFT HAND SHAY WRAP IN PLACE. PATIENT C/O OF 10/10 LEFT HAND PAIN, OFFERED PATIENT NORCO BUT PATIENT REQUESTED TYLENOL INSTEAD. PATIENT SKIN INTACT, SOME BRUISING ON HIPS AND BUTTOCKS FROM FALL. PATIENT WAS RECENTLY ADMITTED EARLIER THIS MONTH FOR FALLS WELL. PATIENT VACCINATED FOR FLU AND COVID. PATIENT USES WALKER, HAS BILATERAL HEARING AIDS. PATIENT DOESN'T SMOKE BUT DRINKS SCOTCH DAILY. ORIENTED PATIENT TO ROOM AND HOW TO USE CALL LIGHT. SAFETY MEASURES IN PLACE: CALL LIGHT WITHIN REACH, SIDE RAILS UP X 2, BED LOCKED IN LOWEST POSITION, HOB ELEVATED, BED ALARM ON. PER REQUEST PATIENT GIVEN SANDWICH. WILL CONTINUE TO MONITOR PATIENT
[2022-10-13 23:30] VITALS: BP_SYST 147; BP_SYST 149; BP_DIAS 67; BP_DIAS 71; BP_DIAS 89
[2022-10-13] MEDS ORDERED: HYDROCODONE/APAP 5/325MG TABLET PO PRN (23:30)
[2022-10-13] MEDS ORDERED: ALBUTEROL FS 2.5 MG/3 ML VIAL.NEB NEB PRN (23:30)
[2022-10-13] MEDS: ENOXAPARIN SODIUM 40 MG/0.4 ML DISP.SYRIN SQ SCH (23:33)
[2022-10-13] MEDS: LamoTRIgine 100 MG TABLET PO SCH (23:33)
[2022-10-13] MEDS: IV NS 0.9% 1,000 ML IV PRN (23:47)
[2022-10-14 05:22] LABS: BAND % (MANUAL) 1 % (0.0-5.0); BASOPHILS % (MANUAL) 0 % (0.0-2.0); EOSINOPHILS % (MANUAL) 1 % (0-4); LYMPHOCYTES % (MANUAL) 33 % (16-48); MONOCYTES % (MANUAL) 7 % (0-11.0); NEUTROPHILS % (MANUAL) 58 (42-76)
--- NOTE | 2022-10-14 06:20 | NUR ---
MS RN CLOSING NOTE PATIENT SLEEPING IN BED, ALERT/ORIENTED X 4, PT ABLE TO MAKE NEEDS KNOWN. PATIENT STABLE ON RA, NO S/S OF DISTRESS OR SOB NOTED, BREATHING EVEN AND UNLABORED. NO SIGNIFICANT CHANGES THIS SHIFT, PATIENT SLEPT WELL THROUGH THE NIGHT, MEDICATIONS GIVEN ORDERED, PT NEEDS MET THROUGHOUT SHIT. IV ACCESS ON RIGHT WRIST #22G INTACT AND INFUSING NS @ 75 ML/HR. PATIENT AMBULATORY WITH WALKER AND SBA. LEFT ARM SHAY WRAP IN PLACE. SAFETY MEASURES IN PLACE: CALL LIGHT WITHIN REACH, SIDE RAILS UP X 2, BED LOCKED IN LOWEST POSITION, BED ALARM ON. WILL ENDORSE TO DAYSHIFT RN FOR CONTINUITY OF CARE
[2022-10-14 06:58] LABS: BASOPHILS % (AUTO) 1.2 % (0.0-2.0); EOSINOPHILS % (AUTO) 1.4 % (0.0-6.0); HEMATOCRIT 33 % (33-45); LYMPHOCYTES # (AUTO) 1.6 K/uL (0.8-4.8); LYMPHOCYTES % (AUTO) 39.8 % (20.0-44.0); MEAN CORPUSCULAR HGB CONC 33 g/dl (31.0-36.0); MEAN CORPUSCULAR VOLUME 105 fL (82-100); MONOCYTES # (AUTO) 0.6 K/uL (0.1-1.30); MONOCYTES % (AUTO) 15.5 % (2.0-12.0); NEUTROPHILS # (AUTO) 1.6 K/uL (1.8-8.9); NEUTROPHILS % (AUTO) 42.1 % (43.0-81.0); PLATELET COUNT (AUTO) 268 K/uL (150-450); RED BLOOD CELL COUNT(AUTO) 3.15 MIL/uL (4.0-5.2); WHITE BLOOD COUNT (AUTO) 3.9 K/uL (4.3-11.0)
[2022-10-14 07:00] VITALS: BP 165/79
[2022-10-14 07:20] LABS: CALCIUM, SERUM 8.1 mg/dL (8.5-10.1); PHOSPHORUS 3.6 mg/dL (2.5-4.9); POTASSIUM 3.6 mmol/L (3.5-5.1)
--- NOTE | 2022-10-14 07:51 | NUR ---
MS RN OPENING NOTES: RECEIVED PATIENT SLEEPING IN BED, ALERT/ORIENTED X 4, PT ABLE TO MAKE NEEDS KNOWN. PATIENT STABLE ON RA, NO S/S OF DISTRESS OR SOB NOTED, BREATHING EVEN AND UNLABORED. IV ACCESS ON RIGHT WRIST #22G INTACT AND INFUSING NS @ 75 ML/HR. PATIENT AMBULATORY WITH WALKER AND SBA. LEFT ARM SHAY WRAP IN PLACE. SAFETY MEASURES IN PLACE: CALL LIGHT WITHIN REACH, SIDE RAILS UP X 2, BED LOCKED IN LOWEST POSITION, BED ALARM ON, WILL CONT WITH PLAN OF CARE DURING SHIFT.
[2022-10-14] MEDS: ESCITALOPRAM OXALATE (10 MG) 10 MG TABLET PO SCH (09:14)
[2022-10-14] MEDS: VALSARTAN 80 MG TABLET PO SCH (09:14)
[2022-10-14] MEDS: METOPROLOL SUCCINATE 25 MG TAB.SR.24H PO SCH (09:15)
[2022-10-14] MEDS: LamoTRIgine 100 MG TABLET PO SCH ×2 (09:16→16:08)
[2022-10-14 11:54] LABS: BAND % (MANUAL) 2 % (0.0-5.0); LYMPHOCYTES % (MANUAL) 38 % (16-48); MONOCYTES % (MANUAL) 18 % (0-11.0); NEUTROPHILS % (MANUAL) 42 (42-76)
[2022-10-14 16:00] VITALS: BP 153/61
--- NOTE | 2022-10-14 18:40 | NUR ---
MS RN CLOSING NOTES: PATIENT SLEEPING IN BED, ALERT/ORIENTED X 4, PT ABLE TO MAKE NEEDS KNOWN. PATIENT STABLE ON RA, NO S/S OF DISTRESS OR SOB NOTED, BREATHING EVEN AND UNLABORED. IV ACCESS ON RIGHT WRIST #22G INTACT AND INFUSING NS @ 75 ML/HR. PATIENT AMBULATORY WITH WALKER. LEFT ARM SHAY WRAP IN PLACE. NEEDS MET, KEPT PT CLEAN, DRY, COMFORTABLE. SAFETY MEASURES IN PLACE: CALL LIGHT WITHIN REACH, SIDE RAILS UP X 2, BED LOCKED IN LOWEST POSITION, BED ALARM ON, WILL ENDORSE TO PM SHIFT.
--- NOTE | 2022-10-14 19:30 | NUR ---
MS RN OPENING NOTES RECEIVED PATIENT IN BED AWAKE, ALERT AND ORIENTED. A/O X 4. NO S/S OF PAIN NOTED AT THIS TIME. PATIENT ON RA, BREATHING EVEN AND UNLABORED, NO DISTRESS OR SOB NOTED. IV ACCESS ON RIGHT WRIST #22G INTACT RUNNING NS @ 75 ML/HR, INFUSING WELL. PATIENT IS AMBULATORY WITH WALKER. LEFT ARM SHAY WRAP IN PLACE. SAFETY MEASURES GIVEN WITH BED LOCKED AND LOWEST POSITION. CALL LIGHT AND TRAY WITHIN EASY REACH. SIDE RAILS UP X 2. BED ALARM ON, WILL CONTINUE WITH THE PLAN OF CARE.
--- NOTE | 2022-10-14 19:30 | NUR ---
ms Addendum: 10/14/22 at 2026 by LOVELY MCCANN RN wrong entry
[2022-10-14 20:00] VITALS: BP 144/56
[2022-10-14] MEDS: AMLODIPINE BESYLATE 5 MG TABLET PO SCH (23:01)
[2022-10-14] MEDS: ENOXAPARIN SODIUM 40 MG/0.4 ML DISP.SYRIN SQ SCH (23:01)
[2022-10-14] MEDS: IV NS 0.9% 1,000 ML IV PRN (23:30)
--- NOTE | 2022-10-15 06:51 | NUR ---
MS RN CLOSING NOTES PATIENT IN BED AWAKE, ALERT AND ORIENTED. A/O X 4. NO S/S OF PAIN NOTED AT THIS TIME. PATIENT ON RA, BREATHING EVEN AND UNLABORED, NO DISTRESS OR SOB NOTED. IV ACCESS ON RIGHT WRIST #22G INTACT RUNNING NS @ 75 ML/HR, INFUSING WELL. PATIENT IS AMBULATORY WITH WALKER. LEFT ARM SHAY WRAP IN PLACE. ALL DUE MEDS GIVEN. SAFETY MEASURES GIVEN WITH BED LOCKED AND LOWEST POSITION. CALL LIGHT AND TRAY WITHIN EASY REACH. SIDE RAILS UP X 2. BED ALARM ON, WILL ENDORSE TO THE NEXT SHIFT.
[2022-10-15 07:04] LABS: BASOPHILS % (AUTO) 1.2 % (0.0-2.0); EOSINOPHILS % (AUTO) 3.5 % (0.0-6.0); HEMATOCRIT 35 % (33-45); HEMOGLOBIN 11.5 g/dL (11.5-14.8); LYMPHOCYTES # (AUTO) 1.4 K/uL (0.8-4.8); LYMPHOCYTES % (AUTO) 36.2 % (20.0-44.0); MEAN CORPUSCULAR HGB CONC 33 g/dl (31.0-36.0); MEAN CORPUSCULAR VOLUME 106 fL (82-100); MONOCYTES # (AUTO) 0.5 K/uL (0.1-1.30); MONOCYTES % (AUTO) 13.8 % (2.0-12.0); NEUTROPHILS # (AUTO) 1.8 K/uL (1.8-8.9); NEUTROPHILS % (AUTO) 45.3 % (43.0-81.0); PLATELET COUNT (AUTO) 282 K/uL (150-450); RED BLOOD CELL COUNT(AUTO) 3.33 MIL/uL (4.0-5.2)
[2022-10-15 07:36] LABS: CALCIUM, SERUM 8.9 mg/dL (8.5-10.1); CARBON DIOXIDE 28 mmol/L (21-32); CHLORIDE 104 mmol/L (98-107); CREATININE 1.1 mg/dL (0.6-1.3); GLUCOSE 86 mg/dL (74-106); MAGNESIUM 1.9 mg/dL (1.8-2.4); POTASSIUM 3.9 mmol/L (3.5-5.1); SODIUM SERUM 137 mmol/L (136-145); UREA NITROGEN, BLOOD 14 mg/dL (7-18)
--- NOTE | 2022-10-15 07:40 | NUR ---
MS RN OPENING NOTE RECEIVED PATIENT IN BED AWAKE, A/O X 4. NO S/S OF PAIN NOTED AT THIS TIME. PATIENT ON RA, BREATHING EVEN AND NON-LABORED, NO DISTRESS OR SOB NOTED. IV ACCESS ON RIGHT WRIST #22G INTACT RUNNING NS @ 75 ML/HR, INFUSING WELL. PATIENT IS AMBULATORY WITH WALKER. LEFT ARM SHAY WRAP IN PLACE. SAFETY MEASURES GIVEN WITH BED LOCKED AND LOWEST POSITION. CALL LIGHT WITHIN EASY REACH. SIDE RAILS UP X 2. BED ALARM ON, WILL CONTINUE WITH THE PLAN OF CARE.
[2022-10-15] MEDS: VALSARTAN 80 MG TABLET PO SCH (08:53)
[2022-10-15] MEDS: ESCITALOPRAM OXALATE (10 MG) 10 MG TABLET PO SCH (08:53)
[2022-10-15] MEDS: METOPROLOL SUCCINATE 25 MG TAB.SR.24H PO SCH (08:54)
[2022-10-15] MEDS: LamoTRIgine 100 MG TABLET PO SCH ×2 (08:54→16:26)
--- NOTE | 2022-10-15 18:35 | NUR ---
RN NOTE CALL[facility] [place][phone], GAVE REPORT TO NAN HOWE.
--- NOTE | 2022-10-15 18:45 | NUR ---
MS RN CLOSING NOTE PATIENT AWAKE IN BED, A/OX 4, PT ABLE TO MAKE NEEDS KNOWN. PATIENT STABLE ON RA, NO S/S OF DISTRESS OR SOB NOTED, BREATHING EVEN AND NON LABORED. IV ACCESS ON RIGHT WRIST #22G INTACT AND INFUSING NS @ 75 ML/HR. PATIENT AMBULATORY WITH WALKER. LEFT ARM SHAY WRAP IN PLACE. NEEDS MET, KEPT PT CLEAN, DRY, COMFORTABLE. SAFETY MEASURES IN PLACE: CALL LIGHT WITHIN REACH, SIDE RAILS UP X 2, BED LOCKED IN LOWEST POSITION, BED ALARM ON, WILL ENDORSE TO MACHINE FILLER SHREDDER FOR WILLARD.
--- NOTE | 2022-10-15 19:15 | NUR ---
RN opening notes Received Pt from morning nurse.Pt is sitting in bed comfortably talking to her roomate. Pt is alert and orientedX4. Pt is [facility] at 2[facility]. Report given to am nurse. On room air. No SOB. No S/S of distress noted. IV site at R wrist # 22 is clean, intact and infusing well NS @ 75 ml/hr. Noted L arm SHAY wrap is clean, intact and dry. Safety precautions is maintained. Bed at low position, brakes locked, side rails upX2, hob elevated and call light is within reach. will continue to monitor.
[2022-10-15 20:00] VITALS: BP_SYST 122; BP_SYST 135; BP_DIAS 62; BP_DIAS 69
--- NOTE | 2022-10-15 21:05 | NUR ---
RN notes Called [facility] ([phone]) regarding picking table worker time. Spoke with Jovan. Jovan informed picking table worker time will be in 1 hour. Charge nurse is aware and informed.
[2022-10-15] MEDS: ENOXAPARIN SODIUM 40 MG/0.4 ML DISP.SYRIN SQ SCH (21:16)
[2022-10-15 21:18] VITALS: BP 135/62
[2022-10-15] MEDS: AMLODIPINE BESYLATE 5 MG TABLET PO SCH (21:18)
--- NOTE | 2022-10-15 22:10 | NUR ---
RN DC notes [facility] and [facility] EMT's ([id number]) arrived to picked up Pt and transport to [facility] re[facility]. Pt is alert and orientedX4. VS is stable. No SOB. No S/S of distress noted. DC paperwork is given to EMt [facility]. Pt's belongings including a walker and a cane given to Elbert MCNEILL. IV removed. armband removed. L wrist splint is clean, intact and dry.
== END 2022-10-15 22:30 | DRG 74 ==
LOC: ER 16:40 → MED 20:47
PROVIDERS: ADMIT Nurse Practitioner Acute Care; ATTEND Nurse Practitioner Family
DX: G90.8 Other disorders of autonomic nervous system (principal); S52.615A Nondisplaced fracture of left ulna styloid process, initial encounter for closed fracture; E87.1 Hypo-osmolality and hyponatremia; E86.0 Dehydration; W18.30XA Fall on same level, unspecified, initial encounter; E78.5 Hyperlipidemia, unspecified; I48.0 Paroxysmal atrial fibrillation; Z20.822 Contact with and (suspected) exposure to COVID-19; F32.A Depression, unspecified; I10 Essential (primary) hypertension; R29.6 Repeated falls; Z79.01 Long term (current) use of anticoagulants; Z96.653 Presence of artificial knee joint, bilateral; Z86.73 Personal history of transient ischemic attack (TIA), and cerebral infarction without residual deficits; G40.909 Epilepsy, unspecified, not intractable, without status epilepticus; J45.909 Unspecified asthma, uncomplicated; G62.9 Polyneuropathy, unspecified; Z98.1 Arthrodesis status; Z79.51 Long term (current) use of inhaled steroids; Z79.899 Other long term (current) drug therapy; W19.XXXA Unspecified fall, initial encounter; Y92.009 Unspecified place in unspecified non-institutional (private) residence as the place of occurrence of the external cause; G20 Parkinson's disease; M50.33 Other cervical disc degeneration, cervicothoracic region; Z87.828 Personal history of other (healed) physical injury and trauma; M43.12 Spondylolisthesis, cervical region; K74.60 Unspecified cirrhosis of liver; I25.10 Atherosclerotic heart disease of native coronary artery without angina pectoris; F10.11 Alcohol abuse, in remission; Z91.81 History of falling
CPT/HCPCS: 36415; 70450-TC; 71045-TC; 73090-TC; 73130-TC; 73200-TC; 80048-TC; 80061-TC; 80076-TC; 81001; 83735-TC; 84100-TC; 84443-TC; 84484-TC; 85025-TC; 85730-TC; 87081-TC; 93307-TC; 97110-TC; 97116-TC; 97530-TC; A4223; G0378; J1650; J7030

== ENCOUNTER 2023-01-18 13:19 | Emergency (ER) | payer MEDICARE ==
[~2023-01-18] VITALS: Ht 167.6 cm; Wt 72.6 kg
[~2023-01-18 13:19] MED LIST changes: -BUME0.5T5 PO
--- NOTE | 2023-01-18 13:20 | NUR ---
BIBA FOR MECHANICAL FALL. A/O X 3, ABLE TO MAKE NEEDS KNOWN, TOLERATING WELL ON ROOM AIR.
--- NOTE | 2023-01-18 14:52 | NUR ---
Patient discharged to home in stable condition. Written and verbal after care instructions given. Patient verbalizes understanding of instruction.
[2023-01-18 14:53] VITALS: BP 126/66
== END 2023-01-18 14:53 | disposition home or self-care (01) ==
LOC: ER 13:20
DX: R51.9 Headache, unspecified (principal); I10 Essential (primary) hypertension; I48.91 Unspecified atrial fibrillation; Z98.890 Other specified postprocedural states; Z60.2 Problems related to living alone; Z79.899 Other long term (current) drug therapy; Z88.5 Allergy status to narcotic agent; Z91.013 Allergy to seafood; W01.0XXA Fall on same level from slipping, tripping and stumbling without subsequent striking against object, initial encounter; Y93.89 Activity, other specified; Y92.89 Other specified places as the place of occurrence of the external cause; Y99.8 Other external cause status
CPT/HCPCS: 70450-TC; 72125-TC

== ENCOUNTER 2023-02-02 15:54 | Inpatient (IN) | payer MEDICARE ==
[~2023-02-02] VITALS: Ht 177.8 cm; Wt 77.6 kg
[2023-02-02] MEDS ORDERED: IV NS 0.9% 500 ML BAG IV ONE (16:30)
[2023-02-02 18:11] LABS: BASOPHILS % (AUTO) 0.7 % (0.0-2.0); EOSINOPHILS % (AUTO) 0.7 % (0.0-6.0); HEMATOCRIT 35 % (33-45); HEMOGLOBIN 11.4 g/dL (11.5-14.8); LYMPHOCYTES # (AUTO) 1.6 K/uL (0.8-4.8); LYMPHOCYTES % (AUTO) 22.2 % (20.0-44.0); MEAN CORPUSCULAR HGB CONC 33 g/dl (31.0-36.0); MEAN CORPUSCULAR VOLUME 98 fL (82-100); MONOCYTES # (AUTO) 0.5 K/uL (0.1-1.30); MONOCYTES % (AUTO) 7.7 % (2.0-12.0); NEUTROPHILS # (AUTO) 4.9 K/uL (1.8-8.9); NEUTROPHILS % (AUTO) 68.7 % (43.0-81.0); PLATELET COUNT (AUTO) 254 K/uL (150-450); RED BLOOD CELL COUNT(AUTO) 3.54 MIL/uL (4.0-5.2); WHITE BLOOD COUNT (AUTO) 7.1 K/uL (4.3-11.0)
[2023-02-02 18:23] LABS: ALCOHOL, BLOOD < 10 mg/dL (0-10); CALCIUM, SERUM 9.5 mg/dL (8.5-10.1); CARBON DIOXIDE 25 mmol/L (21-32); CHLORIDE 104 mmol/L (98-107); CREATININE 1.2 mg/dL (0.6-1.3); GLUCOSE 84 mg/dL (74-106); POTASSIUM 4.1 mmol/L (3.5-5.1); SODIUM SERUM 137 mmol/L (136-145); UREA NITROGEN, BLOOD 20 mg/dL (7-18)
[2023-02-02 18:24] LABS: SERUM AMMONIA 6 umol/L (11-32)
[2023-02-02 18:36] LABS: THYROID STIMULATING HORMONE 1.563 uIU/mL (0.358-3.74)
[2023-02-02] MEDS ORDERED: ACETAMINOPHEN ES 500 MG TABLET ONE (19:38)
[2023-02-02] MEDS ORDERED: ACETAMINOPHEN ES 500 MG TABLET PO ONE (20:00)
[2023-02-02] MEDS ORDERED: HYDROCODONE/APAP 5/325MG TABLET PO PRN (21:00)
[2023-02-02] MEDS ORDERED: MAGNESIUM HYDROXIDE 30 ML UDC PO PRN (21:00)
[2023-02-02] MEDS ORDERED: ONDANSETRON HCL/PF 4 MG/2 ML VIAL IVP PRN (21:00)
[2023-02-02] MEDS ORDERED: MAG HYDROX/AL HYDROX/SIMETH 30 ML UDC PO PRN (21:00)
[2023-02-02] MEDS ORDERED: Z GUARD REMEDY 4 OZ OINT TP PRN (21:00)
[2023-02-02 22:00] VITALS: BP 99/58
[2023-02-03] MEDS: IV NS 0.9% 1,000 ML IV PRN ×2 (00:21→16:15)
[2023-02-03 05:06] VITALS: BP 102/56
[2023-02-03 07:32] LABS: EOSINOPHILS % (AUTO) 2.2 % (0.0-6.0); HEMATOCRIT 33 % (33-45); HEMOGLOBIN 10.9 g/dL (11.5-14.8); LYMPHOCYTES # (AUTO) 1.8 K/uL (0.8-4.8); LYMPHOCYTES % (AUTO) 42.4 % (20.0-44.0); MEAN CORPUSCULAR HGB CONC 33 g/dl (31.0-36.0); MEAN CORPUSCULAR VOLUME 99 fL (82-100); MONOCYTES # (AUTO) 0.5 K/uL (0.1-1.30); MONOCYTES % (AUTO) 11.4 % (2.0-12.0); NEUTROPHILS # (AUTO) 1.9 K/uL (1.8-8.9); PLATELET COUNT (AUTO) 226 K/uL (150-450); RED BLOOD CELL COUNT(AUTO) 3.35 MIL/uL (4.0-5.2); WHITE BLOOD COUNT (AUTO) 4.3 K/uL (4.3-11.0)
[2023-02-03] MEDS: PANTOPRAZOLE 40 MG TABLET.DR PO SCH (07:41)
[2023-02-03 07:55] LABS: CREATININE 1.2 mg/dL (0.6-1.3); MAGNESIUM 1.9 mg/dL (1.8-2.4); PHOSPHORUS 4.6 mg/dL (2.5-4.9); POTASSIUM 4.1 mmol/L (3.5-5.1)
[2023-02-03 13:00] VITALS: BP 140/72
[2023-02-03] MEDS ORDERED: VITA1TAB56 PO (14:48)
[2023-02-03] MEDS ORDERED: VALS160T29 PO (14:48)
[2023-02-03] MEDS ORDERED: ASCO-352 PO (14:48)
[2023-02-03] MEDS ORDERED: CALC500T52 PO (14:48)
[2023-02-03] MEDS ORDERED: [UNRECOGNIZED DRUG - CODE] PO (14:48)
[2023-02-03] MEDS ORDERED: CYAN100T9 PO (14:48)
[2023-02-03] MEDS: ACETAMINOPHEN 325 MG TABLET PO PRN (20:11)
[2023-02-03 21:00] VITALS: BP 127/54
[2023-02-04 05:00] VITALS: BP 131/66
[2023-02-04] MEDS: IV NS 0.9% 1,000 ML IV PRN (05:53)
[2023-02-04] MEDS: PANTOPRAZOLE 40 MG TABLET.DR PO SCH (09:22)
[2023-02-04 13:00] VITALS: BP 141/76
[2023-02-04] MEDS: ACETAMINOPHEN 325 MG TABLET PO PRN (20:41)
[2023-02-04 21:00] VITALS: BP 151/78
[2023-02-05 05:00] VITALS: BP 135/57
[2023-02-05] MEDS: PANTOPRAZOLE 40 MG TABLET.DR PO SCH (08:07)
[2023-02-05] MEDS ORDERED: ESCITALOPRAM OXALATE (10 MG) 10 MG TABLET PO SCH (09:00)
[2023-02-05] MEDS ORDERED: METOPROLOL SUCCINATE 25 MG TAB.SR.24H PO SCH (09:00)
[2023-02-05] MEDS ORDERED: LamoTRIgine 100 MG TABLET PO SCH (09:00)
[2023-02-05] MEDS ORDERED: VALSARTAN 80 MG TABLET PO SCH (09:00)
[2023-02-05] MEDS ORDERED: ALBUTEROL FS 2.5 MG/3 ML VIAL.NEB NEB PRN (09:30)
[2023-02-05 12:00] VITALS: BP 148/98
[2023-02-05] MEDS ORDERED: AMLODIPINE BESYLATE 5 MG TABLET PO SCH (22:00)
== END 2023-02-05 16:00 | DRG 74 ==
LOC: ER 15:56 → MEDSG1 21:21
PROVIDERS: ADMIT Nurse Practitioner Acute Care; ATTEND Nurse Practitioner Acute Care
DX: G90.8 Other disorders of autonomic nervous system (principal); S09.90XA Unspecified injury of head, initial encounter; W01.0XXA Fall on same level from slipping, tripping and stumbling without subsequent striking against object, initial encounter; G40.909 Epilepsy, unspecified, not intractable, without status epilepticus; I48.0 Paroxysmal atrial fibrillation; R79.89 Other specified abnormal findings of blood chemistry; R29.6 Repeated falls; F32.A Depression, unspecified; E78.5 Hyperlipidemia, unspecified; I10 Essential (primary) hypertension; Z96.653 Presence of artificial knee joint, bilateral; Z98.1 Arthrodesis status; Z98.890 Other specified postprocedural states; Z88.5 Allergy status to narcotic agent; Z91.013 Allergy to seafood; Z79.51 Long term (current) use of inhaled steroids; Z79.899 Other long term (current) drug therapy; Z86.73 Personal history of transient ischemic attack (TIA), and cerebral infarction without residual deficits; I25.10 Atherosclerotic heart disease of native coronary artery without angina pectoris; J45.909 Unspecified asthma, uncomplicated; M50.33 Other cervical disc degeneration, cervicothoracic region; K74.60 Unspecified cirrhosis of liver; F10.90 Alcohol use, unspecified, uncomplicated; Y90.0 Blood alcohol level of less than 20 mg/100 ml; Y92.009 Unspecified place in unspecified non-institutional (private) residence as the place of occurrence of the external cause
CPT/HCPCS: 36415; 70450-TC; 72125-TC; 80048-TC; 82140-TC; 83735-TC; 84100-TC; 84443-TC; 85025-TC; 87081-TC; 97110-TC; 97116-TC; 97530-TC; A4223; G0378; G0480; J7030; J7040

== ENCOUNTER 2023-05-07 17:41 | Emergency (ER) | payer MEDICARE ==
[~2023-05-07] VITALS: Ht 167.6 cm; Wt 73.5 kg
[~2023-05-07 17:41] MED LIST changes: +ASCO-352 PO; +CALC500T52 PO; +CYAN100T9 PO; +VALS160T29 PO; -VALS1TAB6 PO; +VITA1TAB56 PO; +[UNRECOGNIZED DRUG - CODE] PO
[2023-05-07 20:19] VITALS: BP 172/74; TEMP 98.3; O2SAT 98
== END 2023-05-07 20:19 | disposition home or self-care (01) ==
LOC: ER 17:50
DX: S93.602A Unspecified sprain of left foot, initial encounter (principal); I10 Essential (primary) hypertension; I48.91 Unspecified atrial fibrillation; Z88.5 Allergy status to narcotic agent; Z88.8 Allergy status to other drugs, medicaments and biological substances; Z91.013 Allergy to seafood; Z60.2 Problems related to living alone; Z79.899 Other long term (current) drug therapy; X50.1XXA Overexertion from prolonged static or awkward postures, initial encounter; Y93.89 Activity, other specified; Y92.89 Other specified places as the place of occurrence of the external cause; Y99.8 Other external cause status
CPT/HCPCS: 73630-TC